=== PATIENT | male | born 1970 | race Caucasian/White ===

== ENCOUNTER → 2017-01-02 | Outpatient (CLI) | payer BC ==
--- NOTE | 2017-01-02 16:18 | CT ---
EXAMINATION TYPE: CT soft tissue neck wo/w con DATE OF EXAM: 01/02/2017 3:51 PM HISTORY: PT states of follow up after tongue CA COMPARISON: Neck CT December 22, 2015. PET/CT June 11, 2016. CT DLP: 1315 mGycm. Automated Exposure Control for Dose Reduction was Utilized. TECHNIQUE: CT scan of the neck is performed without and with IV Contrast, patient injected with 100 mL of Omnipaque 300, axial images are obtained, coronal and sagittal reformatted images are reviewed. FINDINGS: Airway: No gross abnormality seen. Parotid/submandibular glands: No gross abnormality seen. Carotid/Vascular Structures: No significant plaque or stenosis in bilateral carotid bulbs is present Osseous Structures: There is loss of normal cervical curvature. There is mild to moderate spurring in the mid to lower cervical spine present. Other: No suspicious new greater than 1 cm neck adenopathy is identified to suggest neoplastic recurr ence. IMPRESSION: No obvious new mass or adenopathy is seen to suggest neoplastic recurrence with particul ar attention to left neck at area of prior neoplasm.
== END ==
LOC: RADCTMAIN 15:19
PROVIDERS: ATTEND Radiology Diagnostic Radiology
DX: C01 Malignant neoplasm of base of tongue (principal)
CPT/HCPCS: 70492; Q9967

== ENCOUNTER → 2017-09-25 | Outpatient (CLI) | payer BC ==
--- NOTE | 2017-09-25 19:32 | CT ---
EXAMINATION TYPE: CT abdomen w con DATE OF EXAM: 09/25/2017 COMPARISON: 06/11/2016 HISTORY: Epigastric pain and abdominal mass. CT DLP: 1145 mGycm Automated exposure control for dose reduction was used. TECHNIQUE: Helical acquisition of images was performed from the lung bases through the top of iliac crest to include entire abdomen. CONTRAST: Performed with Oral Contrast and with IV Contrast, patient injected with 100 mL of Omnipaque 300. FINDINGS: There are numerous variable sized masses throughout the liver and more concentrated in the left lobe and nadya hepatis region. These measure up to 10 cm in diameter. The spleen appears normal. Bile duct s are not definitely dilated. I see no pancreatic mass. There is no adrenal mass. Kidneys show satisfactory contrast opacification. There is no hydronephrosi s. I see no retroperitoneal adenopathy. There are abdominal para-aortic lymph nodes that measure less than 1 cm. There is no sign of ascites. I see no intestinal wall thickening. I see no bony destructi ve process. IMPRESSION: NUMEROUS LIVER MASSES CONSISTENT WITH METASTATIC DISEASE. THESE APPEAR NEW COMPARED TO CT SCAN OF 05/30. THERE IS REMOVAL OF A GASTROSTOMY TUBE COMPARED TO OLD EXAM.
== END | disposition home or self-care (01) ==
LOC: RADCTMAIN 17:56
PROVIDERS: ATTEND Family Medicine
DX: R16.0 Hepatomegaly, not elsewhere classified (principal)
CPT/HCPCS: 74160; Q9967

== ENCOUNTER 2017-10-09 07:21 | Day surgery (SDC) | payer BC ==
[2017-10-09 08:25] LABS: Platelet Count 440 k/uL (150-450)
[2017-10-09 08:27] LABS: INR 1.3 (<1.2); Prothrombin Time 11.9 sec (9.0-12.0)
[2017-10-09 08:46] VITALS: RESP 20
[2017-10-09] MEDS ORDERED: ALPRAZolam 0.5 MG TAB PO STA (08:47)
--- NOTE | 2017-10-09 09:02 | CT ---
EXAMINATION TYPE: CT chest w con DATE OF EXAM: 10/09/2017 COMPARISON: CT abdomen 09/25/2017 HISTORY: Liver masses, abnormal clinical findings CT DLP: 714 mGycm Automated exposure control for dose reduction was used. CONTRAST: CT scan of the chest is performed with IV Contrast, patient injected with 100 mL of Omnipaque 300. FINDINGS: LUNGS: The lungs are grossly clear, there is no concerning parenchymal mass or nodule identified. T here is no pleural effusion or pneumothorax seen. The tracheobronchial tree is patent. MEDIASTINUM: There are no greater than 1 cm hilar or mediastinal lymph nodes. No pericardial effusi on is seen. AORTA: No additional significant abnormality is seen. OTHER: Extensive replacement of the liver due to multiple and confluent ring-enhancing masses as not ed on CT abdomen.. IMPRESSION: Metastatic disease
[2017-10-09] MEDS ORDERED: HYDROmorphone 1 MG/ML 1 ML SYRINGE IVP STA (09:46)
--- NOTE | 2017-10-09 11:52 | CT ---
EXAMINATION TYPE: CT biopsy liver DATE OF EXAM: 10/09/2017 COMPARISON: NONE HISTORY: Multiple liver masses CT DLP: 1249mGycm PROCEDURE: The risks, applications, benefits and alternatives, were discussed with the patient and questions wer e answered. Informed consent was obtained. The patient was placed supine on the fluoroscopic table, prepped and draped in the usual sterile fashion. A 22-gauge system was utilized with direct passage of the needle into the left lobe liver lesion und er CT guidance. Samples were obtained with fine needle aspiration. Pathology confirmed adequate deepti ple. The patient was stable throughout procedure and remained stable upon discharge from radiology. All e lements of maximal barrier and sterile technique were utilized. IMPRESSION: 1. Successful left lobe liver mass fine needle aspiration under CT guidance.
[2017-10-09 11:54] VITALS: TEMP 98
[2017-10-09 14:28] VITALS: BP 127/82; PULSE 63
== END 2017-10-09 14:29 | disposition home or self-care (01) ==
LOC: RADCTMAIN 07:21 → EDSTATUS 08:00 → RADCTMAIN 14:29
PROVIDERS: ATTEND Internal Medicine Hematology & Oncology
DX: C78.7 Secondary malignant neoplasm of liver and intrahepatic bile duct (principal); C02.9 Malignant neoplasm of tongue, unspecified
CPT/HCPCS: 88305; 88173; 85049; 85610; 88342; 88341; 36415 ×2; 77012; 71260; 10022; J1170; Q9967; 47000

== ENCOUNTER 2017-10-27 07:50 | Day surgery (SDC) | payer BC ==
[2017-10-25 10:44] VITALS: BMI 25.9
--- NOTE | 2017-10-27 07:40 | P.GSHP ---
History of Present Illness H&P Date: 10/27/17 Chief Complaint: Tongue cancer 47 yrs old male with recurrent tongue cancer with liver mets presents for mediport insertion for chemotherapy. Prior radiation therapy left neck. Uninterntional weight loss. No fevers, chills. Past Medical History Past Medical History: Cancer, GERD/Reflux Additional Past Medical History / Comment(s): hx throat cancer- chemo and radiation [id number], recent dx liver cancer, recent bronchitis History of Any Multi-Drug Resistant Organisms: None Reported Past Surgical History: No Surgical Hx Reported Additional Past Surgical History / Comment(s): biopsy on throat, peg feeding tube- feeding tube removed, liver biopsy Past Anesthesia/Blood Transfusion Reactions: No Reported Reaction Additional Past Anesthesia/Blood Transfusion Reaction / Comment(s): . Smoking Status: Former smoker - Past Family History Mother Family Medical History: Congestive Heart Failure (CHF), Myocardial Infarction ( PR) Father Family Medical History: Cancer Medications and Allergies Home Medications Medication Instructions Recorded Confirmed Type Omeprazole 40 mg PO DAILY 10/02/17 10/25/17 History ALPRAZolam [Xanax] 0.25 mg PO BID PRN 10/25/17 10/25/17 History Zofran (Dose Unknown) 1 tab PO TID 10/25/17 10/25/17 History Allergies Allergy/AdvReac Type Severity Reaction Status Date / Time No Known Allergies Allergy Verified 10/25/17 10:36 Surgical - Exam - General well developed, well nourished, no distress - Eyes PERRL - Neck no masses - Abdomen Abdomen: organomegaly Assessment and Plan (1) Primary tongue squamous cell carcinoma Status: Acute Code(s): C02.9 - MALIGNANT NEOPLASM OF TONGUE, UNSPECIFIED SNOMED Code(s): 136339760 Plan: 1. Right IJ mediport insertion under fluoro and sonosite 2. Preop Abx 3. Antibiotics- Ancef 2 gmIVPB 4. B/L SCDs
[~2017-10-27 07:50] MED LIST: HYDROmorphone 0.5 MG/0.5 ML SYRINGE IVP PRN; ONDANSETRON 4 MG/2 ML VIAL IVP PRN; Pre Op ABX Message 1 EACH MISC MISCELLANE ONE
[2017-10-27 08:57] VITALS: TEMP 97.1
[2017-10-27] MEDS: LACTATED RINGERS 1,000 ML IV SCH ×2 (08:57→12:58)
[2017-10-27] MEDS ORDERED: MIDAZOLAM 2 MG/2 ML VIAL IVP ONE (10:43)
[2017-10-27] MEDS ORDERED: PROPOFOL 10 MG/ML 20 ML VIAL IV ONE (12:59)
[2017-10-27] MEDS ORDERED: MIDAZOLAM 2 MG/2 ML VIAL ONE (12:59)
[2017-10-27] MEDS ORDERED: LIDOCAINE 1% INJ 10MG/ML (20 ML MDV) ONE (12:59)
[2017-10-27] MEDS ORDERED: fentaNYL (PF) 50 MCG/ML 2 ML AMP ONE (12:59)
[2017-10-27] MEDS ORDERED: KETAMINE 10 MG/ML 20 ML VIAL ONE (12:59)
[2017-10-27] MEDS ORDERED: SODIUM CHLORIDE 0.9% 50 ML with ceFAZolin 2,000 MG IV ONE ×2 (13:07)
[2017-10-27] MEDS ORDERED: HEPARIN SODIUM,PORCINE 100 UNIT/ML 5 ML VIAL IV ONE ×2 (13:16)
[2017-10-27] MEDS ORDERED: BUPIVACAINE-EPI 0.5%-1:200,000 10 ML VIAL SQ ONE ×2 (13:16)
--- NOTE | 2017-10-27 14:02 | FL ---
EXAMINATION TYPE: FL guided central line placement DATE OF EXAM: 10/27/2017 CLINICAL HISTORY: Port-A-Cath insertion TECHNIQUE: Fluoroscopy. COMPARISON: None. FINDINGS: Fluoroscopic guidance was provided during Port-A-Cath insertion procedure performed by Dr. Baer. A total of 32 seconds of fluoroscopic time was utilized during the procedure and 2 spot i mages are acquired. Intraoperative fluoroscopic images acquired show right internal jugular Mediport catheter with tip in right atrium. IMPRESSION: As Above.
[2017-10-27 14:20] VITALS: RESP 18
--- NOTE | 2017-10-27 14:24 | XR ---
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 Port-A-Cath placement for chemotherapy. TECHNIQUE: Single frontal view of the chest is obtained. FINDINGS: There is new when internal jugular Mediport catheter with tips in SVC. There is no focal a ir space opacity, pleural effusion, or pneumothorax seen. The cardiac silhouette size is within norm al limits. The osseous structures are intact. IMPRESSION: No evidence of sizable pneumothorax. Right internal jugular Mediport catheter with tip i n SVC noted.
[2017-10-27 14:47] VITALS: BP 133/90; PULSE 74
--- NOTE | 2017-10-27 17:08 | P.OP ---
Date of Procedure: 10/27/17 Preoperative Diagnosis: Left base of tongue cancer Liver metastasis Postoperative Diagnosis: Same Procedure(s) Performed: Right IJ mediport placement Implants: Xcela Power Port 8French single lumen Anesthesia: SHERRI Surgeon: Salma Baer Pathology: none sent Condition: stable Disposition: PACU Indications for Procedure: 47 years old male presents with metastatic base of tongue cancer to liver. He presents for Mediport insertion for chemotherapy. Informed consent obtained and risks, benefits and potential complications were explained Description of Procedure: The patient was brought to the operating room and placed in supine position with both arms tucked. A footboard was placed. Chlorhexidine was used to prep the neck followed by application of sterile drapes and an Ioban dressing . A timeout was performed to verify correct patient and correct procedure. Patient was confirmed to receive perioperative IV antibiotics and VTE prophylaxis. An ultrasound was performed of the right neck to identify the carotid artery and internal jugular vein. The internal jugular vein was compressible and patent . Photodocumentation was made. Local anesthetic was infiltrated to create a field block. Seldinger technique was used and the internal jugular vein was accessed under direct ultrasound guidance. There was good backflow of dark venous blood. The guidewire was inserted and fluoroscopic images obtained to confirm the tip in SVC. The needle was removed followed by insertion of a dilator peel-away sheath. Local anesthetic was infiltrated along the inferior aspect of the right clavicle. A 2.5 cm skin incision was made and dissection was carried up to the pectoralis major muscle. A pocket was created for the port. The catheter tubing was connected to the port using the conector after flushing both the port and the catheter with normal saline. The tunneling device was connected to the end of the catheter and after placement of the port in the subcutaneous pocket the tunneling device was passed from the lower incision to the counter incision in the neck. The catheter was measured at the junction of SVC and right atrium. The inner cannula of the peel-away sheath was removed and catheter was gradually inserted. The peel-away sheath was gradually removed. Fluoroscopic image confirmed the tip of the catheter at the junction of SVC and right atrium. There was no kink, fold or torsion of the catheter and the port. The Pickens needle was used to access the port and easy backflow was obtained. This was flushed with 10 mL of normal saline and 10 mL of Hep-Lock was inserted. The skin incision was closed in 3 layers using 3-0 Vicryl interrupted stitches and a running suture of 4-0 Monocryl. Counter incision in the neck was also closed using 3-0 Vicryl followed by 4-0 Monocryl. Dermabond skin glue was applied followed by Telfa and Tegaderm dressing. The sponge, instrument and needle count were correct -2 Patient tolerated the procedure well and was taken to post anesthesia care unit in stable condition Final chest x-ray showed the tip of the catheter in SVC and no pneumothorax. Total fluoroscopic time was 32 seconds
== END 2017-10-27 15:00 | disposition home or self-care (01) ==
LOC: OR 07:50
PROVIDERS: ATTEND Surgery
DX: C01 Malignant neoplasm of base of tongue (principal); C78.7 Secondary malignant neoplasm of liver and intrahepatic bile duct; K21.9 Gastro-esophageal reflux disease without esophagitis; Z92.21 Personal history of antineoplastic chemotherapy; Z92.3 Personal history of irradiation; Z87.891 Personal history of nicotine dependence; Z79.899 Other long term (current) drug therapy; Z79.891 Long term (current) use of opiate analgesic
CPT/HCPCS: 71010; 77001; 36561; C1788; J2250; J1642; J2405; J2001; J3010; J0690; J2704

== ENCOUNTER → 2017-12-29 | Outpatient (CLI) | payer BC ==
--- NOTE | 2017-12-29 12:40 | CT ---
EXAMINATION TYPE: CT ChestAbdPelvis w con DATE OF EXAM: 12/29/2017 COMPARISON: PET/CT exams January 23, 2016 and June 11, 2016. CT chest October 09, 2017. CT abdomen N [id number]. HISTORY: malignant neoplasm of tongue with liver metastatic disease with chemotherapy and radiation t reatment date not specified per patient. CT DLP: 883.4 mGycm. Automated Exposure Control for Dose Reduction was Utilized. CONTRAST: CT scan of the thorax, abdomen and pelvis is performed with oral and with IV Contrast, patient inject ed with 100 mL of Omnipaque 300. FINDINGS: LUNGS: The lungs are grossly clear, there is no concerning parenchymal mass or nodule identified. T here is no pleural effusion or pneumothorax seen. The tracheobronchial tree is patent. MEDIASTINUM: There are no greater than 1 cm hilar or mediastinal lymph nodes. No cardiomegaly or pe ricardial effusion is seen. OTHER: There is new right internal jugular Mediport catheter with tips in SVC. Bilateral gynecomastia is redemonstrated. LIVER/GB: There is redemonstration of innumerable heterogeneous hypodense metastatic lesions. Most le sions are stable or decreasing in size. Largest lesion centrally measures 10.8 cm long axis axial bobby ge 65, felt slightly diminished in size as measured 11.8 cm long axis prior study axial image 20. For reference anterior lesion to this measures 4.2 cm long axis axial image 68 and measured 5.3 cm long axis axial image 25 prior study. There is however at least one enlarging lesion identified, for refer ence segment 6 anterior inferior lesion measures 5.1 cm long axis axial image 82 versus 3.1 cm long a xis prior study axial image 80. PANCREAS: No significant abnormality is seen. SPLEEN: No significant abnormality is seen. ADRENALS: No significant abnormality is seen. KIDNEYS: No significant abnormality is seen. BOWEL: No significant abnormality is seen. GENITAL ORGANS: The oral contrast reaches level of rectum. There is no suspicious small or large chula l dilatation. LYMPH NODES: No greater than 1cm abdominal or pelvic lymph nodes are appreciated. OSSEOUS STRUCTURES: Osseous structures are somewhat demineralized. There is mild multilevel spurring in the thoracic spine. OTHER: No significant additional abnormality is seen. IMPRESSION: Predominately favored response as majority of liver lesions are decreasing in size. At le ast one enlarging lesion however is noted making the overall mixed response. No new metastatic diseas e is identified.
== END | disposition home or self-care (01) ==
LOC: RADPROMAIN 10:16
PROVIDERS: ATTEND Internal Medicine Hematology & Oncology
DX: K76.9 Liver disease, unspecified (principal); C01 Malignant neoplasm of base of tongue
CPT/HCPCS: 71260; 74177; Q9967

== ENCOUNTER → 2018-03-15 | Outpatient (CLI) | payer BC ==
[2018-03-15 15:34] LABS: Blood Urea Nitrogen 19 mg/dL (9-20)
--- NOTE | 2018-03-16 14:11 | CT ---
EXAMINATION TYPE: CT ChestAbdPelvis w con DATE OF EXAM: 03/15/2018 COMPARISON: 12/29/2017 and PET/CT dated 06/11/2016 HISTORY: Patient has no complaints at time of service. Follow up study for known tongue CA with mets to the liver. CT DLP: 747 mGycm. Automated Exposure Control for Dose Reduction was Utilized. CONTRAST: CT scan of the thorax, abdomen and pelvis is performed with IV Contrast, patient injected with 100 mL of Isovue 300. FINDINGS: LUNGS: The lungs are grossly clear, there is no concerning parenchymal mass or nodule identified. T here is no pleural effusion or pneumothorax seen. The tracheobronchial tree is patent. MEDIASTINUM: Right-sided Mediport is noted. There are no greater than 1 cm hilar or mediastinal lymph nodes. No pericardial effusion is seen. OTHER: Bilateral symmetric mild retroareolar gynecomastia is incidentally noted. LIVER/GB: Innumerable hepatic metastatic disease is again appreciated with numerous hypoattenuated he patic masses. The largest currently measures 9.3 x 8.7 cm on series 3 image 59 and previously measure d approximately 10.8 x 10.0 cm on the exam of 12/29/2017. New subcapsular trace ascites is seen anterio r to the liver. There are 2 lesions that appear smaller on the prior exam currently measuring approxi mately 1.4 cm and 1.2 cm on series 3 image 69 and previously measuring 8 mm and 9 mm within the right hepatic lobe. These could be changes secondary to slice selection. There is also decrease in size of a left hepatic lobe lesion on series 3 image 74 as it measures 5.0 x 4.4 cm and previously measured 5.4 x 4.5 cm. Another lesion within the inferior right hepatic lobe also measures smaller as it was p reviously seen measuring 5.1 cm and now measures 4.0 cm on series 3 image 79. No gross evidence of po rtal vein thrombosis. PANCREAS: No significant abnormality is seen. No ductal dilatation. SPLEEN: No significant abnormality is seen. No splenomegaly. ADRENALS: No nodularity or thickening. KIDNEYS: Kidneys enhance symmetrically without focal lesion. No hydronephrosis.. BOWEL: No dilation. Bowel is overall unremarkable. LYMPH NODES: Hyperdense portacaval lymph node measures 1.4 cm in short axis and has decreased from th e prior measured 1.8 cm. Another mildly enlarged 1.3 cm portacaval lymph node is seen on series 8 bobby ge 33. Multiple additional nonenlarged gastrohepatic, peripancreatic, and portacaval lymph nodes are seen. OSSEOUS STRUCTURES: Multilevel degenerative change of the thoracolumbar and lumbosacral spine are not ed. No new suspicious osseous lesions are seen.. OTHER: There is a small amount of free pelvic fluid layering dependently within the pelvis IMPRESSION: 1. Overall response to treatment of the innumerable hepatic metastasis with decrease in size of the l argest lesion and two additional large lesions in comparison to the prior exam. There are 2 small rig ht hepatic lobe lesions that appears slightly larger than the prior exam, however this may be related to slice selection given their small size. Additionally portacaval adenopathy has decreased in size in the interim. 2. No evidence of visceral metastasis or adenopathy within the chest. 3. New trace amount of perihepatic ascites and free fluid within the pelvis. 4. No new suspicious osseous abnormalities.
== END | disposition home or self-care (01) ==
LOC: RADPROMAIN 13:26
PROVIDERS: ATTEND Internal Medicine Hematology & Oncology
DX: C01 Malignant neoplasm of base of tongue (principal); C78.7 Secondary malignant neoplasm of liver and intrahepatic bile duct; R59.0 Localized enlarged lymph nodes
CPT/HCPCS: 82565; 84520; 71260; 74177; J1642; Q9967

== ENCOUNTER → 2018-06-01 | Outpatient (CLI) | payer BC ==
[2018-06-01 14:47] LABS: Blood Urea Nitrogen 19 mg/dL (9-20)
--- NOTE | 2018-06-03 15:51 | CT ---
EXAMINATION TYPE: CT ChestAbdPelvis w con DATE OF EXAM: 06/01/2018 COMPARISON: 03/15/2018 and 12/29/2017 HISTORY: tongue cancer follow up CT DLP: 756.9 mGycm. Automated Exposure Control for Dose Reduction was Utilized. CONTRAST: CT scan of the thorax, abdomen and pelvis is performed with IV Contrast, patient injected with 100 mL of Isovue 300. FINDINGS: LUNGS: The lungs are grossly clear, there is no concerning parenchymal mass or nodule identified. Ple ural-based 2 mm pulmonary nodule within the right lung apex is retrospectively stable and of low susp icion series 5 image 13. However there is a new subsolid on series 5 image 37 nodule in the right low er lobe measuring 4 mm with surrounding groundglass opacity seen on image 36 and 35. There is no pleu ral effusion or pneumothorax seen. The tracheobronchial tree is patent. MEDIASTINUM: No cardiomegaly. No pericardial effusion is seen. There are paraesophageal lymph nodes that are seen in series 3 image 49 measuring up to 9 mm in short axis. LIVER/GB: Again there are innumerable hepatic metastases throughout the entirety of the liver. In com parison to the prior the largest confluence of multiple nodules measure similar to the prior at 10.0 x 8.8 cm (previously 9.3 x 8.7 and on the exam of 12/29/2017 is measured 10.8 x 10.0). Another referenc e lesion near the falciform ligament on series 3 image 74 measures approximately 3.3 x 4.7 cm (when m easured in a similar fashion this previously measured approximately 3.3 x 4.8 cm. However there are n umerous multiple new small hepatic lesions throughout the liver. PANCREAS: No significant abnormality is seen. No ductal dilatation. SPLEEN: No significant abnormality is seen. No splenomegaly. ADRENALS: No significant abnormality is seen. No nodularity. KIDNEYS: Kidneys enhance and excrete symmetrically without hydronephrosis. BOWEL: No significant abnormality is seen. No dilated bowel is present. LYMPH NODES: Multiple necrotic periportal lymph nodes are seen as well as celiac axis lymph nodes suc h as on series 3 image 68 measuring 1.3 cm in short axis. Periaortic adenopathy is also seen with toribio tral necrosis such as on series 3 image 78 measuring 1.1 cm in short axis. Other nonenlarged but prom inent gastrohepatic, peripancreatic and portacaval lymph nodes are present. OSSEOUS STRUCTURES: Multilevel degenerative changes of the thoracic spine and lumbosacral spine are s een with no suspicious new osseous lesion identified. Extensive degenerative facet arthropathy is see n on the right at L5-S1 creating severe neural foraminal narrowing. OTHER: There is a small amount of free fluid seen dependently within the pelvis, similar in volume to the prior. Incidentally noted retroareolar gynecomastia is present IMPRESSION: 1. Progression of disease. The largest lesions appear similar in measurement to the prior, however th ere are multiple new subcentimeter hepatic metastases scattered throughout the liver. 2. New subsolid right lower lobe pulmonary nodule that given its consistency could be inflammatory or infectious in etiology although short-term follow-up is recommended to ensure this does not represen t a new site of metastasis. 3. Similar appearing upper abdominal centrally necrotic metastatic adenopathy. Right paraesophageal l ower mediastinal lymph nodes are also prominent in size. 4. Similar small volume pelvic ascites. 5. No new suspicious osseous lesions however there is severe right neural foraminal narrowing at L5-S 1 secondary to extensive facet arthropathy.
== END ==
LOC: RADPROMAIN 14:01
PROVIDERS: ATTEND Internal Medicine Hematology & Oncology
DX: Z03.89 Encounter for observation for other suspected diseases and conditions ruled out (principal); C77.9 Secondary and unspecified malignant neoplasm of lymph node, unspecified; C78.7 Secondary malignant neoplasm of liver and intrahepatic bile duct; R18.8 Other ascites; C01 Malignant neoplasm of base of tongue
CPT/HCPCS: 82565; 84520; 71260; 74177; J1642; Q9967

== ENCOUNTER 2018-06-21 09:02 | Day surgery (SDC) | payer BC ==
[~2018-06-21 09:02] MED LIST changes: -ONDANSETRON 4 MG/2 ML VIAL IVP PRN; -Pre Op ABX Message 1 EACH MISC MISCELLANE ONE
[2018-06-21 09:37] LABS: Mean Platelet Volume 6.8; Platelet Count 322 k/uL (150-450)
[2018-06-21 09:43] VITALS: RESP 16
[2018-06-21 09:46] LABS: INR 1.2 (<1.2); Prothrombin Time 11.4 sec (9.0-12.0)
[2018-06-21] MEDS ORDERED: HYDROmorphone 1 MG/ML 1 ML SYRINGE IVP PRN (10:18)
--- NOTE | 2018-06-21 12:09 | US ---
EXAMINATION TYPE: US biopsy liver DATE OF EXAM: 06/21/2018 COMPARISON: 06/01/2018 HISTORY: Liver mass The procedure was explained to the patient. The risks, complications, benefits, and alternatives wer e discussed and any questions were answered. Informed consent was obtained. Patient was placed supi ne on the CT table and prepped and draped in the usual sterile fashion. All elements of maximal barrier and sterile technique utilized. Utilizing CT guidance, an 18 gauge core biopsy needle access into the left lobe of the liver lesion was achieved and two18 gauge core samples were obtained. The patient was stable throughout the proce dure and remained stable upon discharge. IMPRESSION: 1. Successful 18 gauge core biopsy of the liver.
[2018-06-21 14:22] VITALS: BP 109/67; PULSE 64; TEMP 98.7
== END 2018-06-21 14:49 | disposition home or self-care (01) ==
LOC: RADPROMAIN 09:02
PROVIDERS: ATTEND Internal Medicine Hematology & Oncology
DX: D49.0 Neoplasm of unspecified behavior of digestive system (principal)
CPT/HCPCS: 85049; 85610; 88342; 88307; 88341; 96374; 47000; 76942; J1170; J1642

== ENCOUNTER 2018-09-05 11:07 | Inpatient (IN) | payer BC ==
--- NOTE | 2018-09-05 11:41 | ED ---
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 Patient states she has metastatic disease to the liver and has quite a bit of ascites. On Monday he had 6.6 L drained. Patient states yesterday he was told his calcium was elevated and he came in for some fluids and that infusion of a drug to help calcium. Patient comes in today because he is experiencing more right-sided abdominal pain since he had the paracentesis. Patient also states he's been more short of breath and he thought his shortness of breath would improve but it has not. Patient denies any chest pain or palpitations. Patient denies any fever chills per patient denies any nausea vomiting diarrhea. Patient states she's had no change in urination no burning or hematuria. Patient states the pain in his abdomen is much worse when he coughs or moves if he lies still it is not too bad. Patient states the pain is typically about a 4 out of 10 right now it's better because he took pain medication prior to arrival. - Related Data Home Medications Medication Instructions Recorded Confirmed Omeprazole 40 mg PO DAILY 10/02/17 09/05/18 ALPRAZolam [Xanax] 0.25 mg PO Q8H PRN 10/25/17 09/05/18 fentaNYL [Duragesic 50MCG/HR] 50 mcg TRANSDERM Q72H 06/13/18 09/05/18 oxyCODONE-APAP 10-325MG [Percocet 1 tab PO Q4H PRN 06/13/18 09/05/18 10-325 mg] Docusate [Colace] 300 mg PO BID 09/05/18 09/05/18 Prochlorperazine [Compazine] 10 mg PO Q8H PRN 09/05/18 09/05/18 Vitamin B Complex 1 cap PO DAILY 09/05/18 09/05/18 Allergies Allergy/AdvReac Type Severity Reaction Status Date / Time No Known Allergies Allergy Verified 09/05/18 11:40 Review of Systems ROS Statement: Those systems with pertinent positive or pertinent negative responses have been documented in the HPI. ROS Other: All systems not noted in ROS Statement are negative. Past Medical History Past Medical History: Cancer, GERD/Reflux Additional Past Medical History / Comment(s): hx throat cancer- chemo and radiation [id number], recent dx liver cancer, recent bronchitis History of Any Multi-Drug Resistant Organisms: None Reported Past Surgical History: No Surgical Hx Reported Additional Past Surgical History / Comment(s): biopsy on throat, peg feeding tube- feeding tube removed, liver biopsyx3, paracentesis x1, power port Past Anesthesia/Blood Transfusion Reactions: No Reported Reaction Additional Past Anesthesia/Blood Transfusion Reaction / Comment(s): . Past Psychological History: Anxiety Smoking Status: Former smoker Past Alcohol Use History: None Reported Past Drug Use History: None Reported - Past Family History Mother Family Medical History: Congestive Heart Failure (CHF), Myocardial Infarction ( [place]) Father Family Medical History: Cancer General Exam - General Exam Comments Initial Comments: GENERAL: Patient is well-developed and well-nourished. Patient is nontoxic and well- hydrated and is in mild distress. ENT: Neck is soft and supple. No significant lymphadenopathy is noted. Oropharynx is clear. Moist mucous membranes. Neck has full range of motion without eliciting any pain. EYES: The sclera were anicteric and conjunctiva were pink and moist. Extraocular movements were intact and pupils were equal round and reactive to light. Eyelids were unremarkable. PULMONARY: Unlabored respirations. Good breath sounds bilaterally. No audible rales rhonchi or wheezing was noted. CARDIOVASCULAR: There is a regular rate and rhythm without any murmurs gallops or rubs. ABDOMEN: Patient's liver is enlarged he is tender right upper quadrant always to the epigastric area. Bowel sounds are normal. Patient also has a little tenderness over the paracentesis site. SKIN: Skin is clear with no lesions or rashes and otherwise unremarkable. NEUROLOGIC: Patient is alert and oriented x3. Cranial nerves II through XII are grossly intact. Motor and sensory are also intact. Normal speech, volume and content. Symmetrical smile. MUSCULOSKELETAL: Normal extremities with adequate strength and full range of motion. LYMPHATICS: No significant lymphadenopathy is noted PSYCHIATRIC: Normal psychiatric evaluation. Limitations: no limitations Course Vital Signs 09/05/18 09/05/18 09/05/18 11:15 12:15 13:30 Temperature 98.1 F Pulse Rate 101 H 94 99 Respiratory 18 18 18 Rate Blood Pressure 133/89 134/78 102/66 O2 Sat by Pulse 95 98 96 Oximetry 09/05/18 15:38 Temperature 100 F H Pulse Rate 98 Respiratory 16 Rate Blood Pressure 139/94 O2 Sat by Pulse 94 L Oximetry Medical Decision Making - Medical Decision Making EKG shows normal sinus rhythm at 97 bpm MD interval is 136 QRS is 88 QT interval 338 QTC is 429. Patient's EKG shows no ST segment elevation or depression or T wave abnormalities are noted. Patient spiked a fever at 345 I gave the patient help this time I ordered a lactic acid and I started the patient on antibiotics. CT of the chest showed no PE. CT of the abdomen showed advancing ascites as well as metastatic disease. Patient required multiple doses of pain medication while in the emergency department. I spoke with the patient about being admitted in treating him for his fever and possible peritonitis he was in agreement with that but he did state to me that he did not want any aggressive care. I spoke with Dr. Cameron she agreed to admit the patient. I spoke with the oncologist and she agreed with Usman. - Lab Data Result diagrams: 09/05/18 12:38 09/05/18 12:38 Lab Results 09/05/18 09/05/18 09/05/18 Range/Units 12:38 12:38 12:38 WBC 17.5 H (3.8-10.6) k/uL RBC 4.45 (4.30-5.90) m/uL Hgb 12.1 L (13.0-17.5) gm/dL Hct 40.4 (39.0-53.0) % MCV 90.7 (80.0-100.0) fL MCH 27.3 (25.0-35.0) pg MCHC 30.1 L (31.0-37.0) g/dL RDW 15.5 (11.5-15.5) % Plt Count 487 H (150-450) k/uL Neutrophils % (Manual) 84 % Band Neutrophils % 4 % Lymphocytes % (Manual) 4 % Monocytes % (Manual) 7 % Eosinophils % (Manual) 1 % Neutrophils # (Manual) 15.40 H (1.3-7.7) k/uL Lymphocytes # (Manual) 0.70 L (1.0-4.8) k/uL Monocytes # (Manual) 1.23 H (0-1.0) k/uL Eosinophils # (Manual) 0.18 (0-0.7) k/uL Nucleated RBCs 0 (0-0) /100 WBC Manual Slide Review Performed RBC Morphology Normal PT (9.0-12.0) sec INR (<1.2) APTT (22.0-30.0) sec D-Dimer 2.09 H (<0.60) mg/L FEU Sodium 131 L (137-145) mmol/L Potassium 5.2 H (3.5-5.1) mmol/L Chloride 95 L (98-107) mmol/L Carbon Dioxide 29 (22-30) mmol/L Anion Gap 7 mmol/L BUN 27 H (9-20) mg/dL Creatinine 0.84 (0.66-1.25) mg/dL Est GFR (CKD-EPI)AfAm >90 (>60 ml/min/1.73 sqM) Est GFR (CKD-EPI)NonAf >90 (>60 ml/min/1.73 sqM) Glucose 116 H (74-99) mg/dL Plasma Lactic Acid Max (0.7-2.0) mmol/L Calcium 11.1 H (8.4-10.2) mg/dL Total Bilirubin 1.1 (0.2-1.3) mg/dL AST 212 H (17-59) U/L ALT 94 H (21-72) U/L Alkaline Phosphatase 1439 H (38-126) U/L Troponin I (0.000-0.034) ng/mL Total Protein 6.9 (6.3-8.2) g/dL Albumin 3.4 L (3.5-5.0) g/dL Amylase 50 (30-110) U/L Lipase 139 (23-300) U/L Urine Color Urine Appearance (Clear) Urine pH (5.0-8.0) Ur Specific [place] (1.001-1.035) Urine Protein (Negative) Urine Glucose (UA) (Negative) Urine Ketones (Negative) Urine Blood (Negative) Urine Nitrite (Negative) Urine Bilirubin (Negative) Urine Urobilinogen (<2.0) mg/dL Ur Leukocyte Esterase (Negative) Urine WBC (0-5) /hpf 09/05/18 09/05/18 09/05/18 Range/Units 12:38 12:38 12:38 WBC (3.8-10.6) k/uL RBC (4.30-5.90) m/uL Hgb (13.0-17.5) gm/dL Hct (39.0-53.0) % MCV (80.0-100.0) fL MCH (25.0-35.0) pg MCHC (31.0-37.0) g/dL RDW (11.5-15.5) % Plt Count (150-450) k/uL Neutrophils % (Manual) % Band Neutrophils % % Lymphocytes % (Manual) % Monocytes % (Manual) % Eosinophils % (Manual) % Neutrophils # (Manual) (1.3-7.7) k/uL Lymphocytes # (Manual) (1.0-4.8) k/uL Monocytes # (Manual) (0-1.0) k/uL Eosinophils # (Manual) (0-0.7) k/uL Nucleated RBCs (0-0) /100 WBC Manual Slide Review RBC Morphology PT 16.2 H (9.0-12.0) sec INR 1.8 H (<1.2) APTT 48.9 H (22.0-30.0) sec D-Dimer (<0.60) mg/L FEU Sodium (137-145) mmol/L Potassium (3.5-5.1) mmol/L Chloride (98-107) mmol/L Carbon Dioxide (22-30) mmol/L Anion Gap mmol/L BUN (9-20) mg/dL Creatinine (0.66-1.25) mg/dL Est GFR (CKD-EPI)AfAm (>60 ml/min/1.73 sqM) Est GFR (CKD-EPI)NonAf (>60 ml/min/1.73 sqM) Glucose (74-99) mg/dL Plasma Lactic Acid Max 1.9 (0.7-2.0) mmol/L Calcium (8.4-10.2) mg/dL Total Bilirubin (0.2-1.3) mg/dL AST (17-59) U/L ALT (21-72) U/L Alkaline Phosphatase (38-126) U/L Troponin I <0.012 (0.000-0.034) ng/mL Total Protein (6.3-8.2) g/dL Albumin (3.5-5.0) g/dL Amylase (30-110) U/L Lipase (23-300) U/L Urine Color Urine Appearance (Clear) Urine pH (5.0-8.0) Ur Specific [place] (1.001-1.035) Urine Protein (Negative) Urine Glucose (UA) (Negative) Urine Ketones (Negative) Urine Blood (Negative) Urine Nitrite (Negative) Urine Bilirubin (Negative) Urine Urobilinogen (<2.0) mg/dL Ur Leukocyte Esterase (Negative) Urine WBC (0-5) /hpf 09/05/18 Range/Units 15:08 WBC (3.8-10.6) k/uL RBC (4.30-5.90) m/uL Hgb (13.0-17.5) gm/dL Hct (39.0-53.0) % MCV (80.0-100.0) fL MCH (25.0-35.0) pg MCHC (31.0-37.0) g/dL RDW (11.5-15.5) % Plt Count (150-450) k/uL Neutrophils % (Manual) % Band Neutrophils % % Lymphocytes % (Manual) % Monocytes % (Manual) % Eosinophils % (Manual) % Neutrophils # (Manual) (1.3-7.7) k/uL Lymphocytes # (Manual) (1.0-4.8) k/uL Monocytes # (Manual) (0-1.0) k/uL Eosinophils # (Manual) (0-0.7) k/uL Nucleated RBCs (0-0) /100 WBC Manual Slide Review RBC Morphology PT (9.0-12.0) sec INR (<1.2) APTT (22.0-30.0) sec D-Dimer (<0.60) mg/L FEU Sodium (137-145) mmol/L Potassium (3.5-5.1) mmol/L Chloride (98-107) mmol/L Carbon Dioxide (22-30) mmol/L Anion Gap mmol/L BUN (9-20) mg/dL Creatinine (0.66-1.25) mg/dL Est GFR (CKD-EPI)AfAm (>60 ml/min/1.73 sqM) Est GFR (CKD-EPI)NonAf (>60 ml/min/1.73 sqM) Glucose (74-99) mg/dL Plasma Lactic Acid Max (0.7-2.0) mmol/L Calcium (8.4-10.2) mg/dL Total Bilirubin (0.2-1.3) mg/dL AST (17-59) U/L ALT (21-72) U/L Alkaline Phosphatase (38-126) U/L Troponin I (0.000-0.034) ng/mL Total Protein (6.3-8.2) g/dL Albumin (3.5-5.0) g/dL Amylase (30-110) U/L Lipase (23-300) U/L Urine Color Light Brown Urine Appearance Turbid (Clear) Urine pH 5.5 (5.0-8.0) Ur Specific [place] 1.027 (1.001-1.035) Urine Protein 1+ H (Negative) Urine Glucose (UA) Negative (Negative) Urine Ketones Negative (Negative) Urine Blood Negative (Negative) Urine Nitrite Negative (Negative) Urine Bilirubin 1+ H (Negative) Urine Urobilinogen 3.0 (<2.0) mg/dL Ur Leukocyte Esterase Negative (Negative) Urine WBC 40 H (0-5) /hpf Critical Care Time Critical Care Time: Yes Total Critical Care Time: 35 Disposition Clinical Impression: Peritonitis Disposition: ADMITTED IP TO THIS HOSP Referrals: Yusuf Cameron MD [Primary Care Provider] - 1-2 days Time of Disposition: 17:08
--- NOTE | 2018-09-05 13:00 | XR ---
EXAMINATION TYPE: XR KUB DATE OF EXAM: 09/05/2018 COMPARISON: NONE HISTORY: Pain TECHNIQUE: Single supine KUB image of the abdomen is obtained FINDINGS: Small bowel demonstrates no evidence for dilatation or air fluid levels. Retained contrast within th e transverse colon. Gas and fecal material is seen in non-distended colon. No convincing evidence for pneumoperitoneum. No unusual calcifications. The lung bases are clear. The osseous structures are intact. IMPRESSION: 1. Overall nonobstructive bowel gas pattern.
[2018-09-05 13:05] LABS: HCT 40.4 % (39.0-53.0); HGB 12.1 gm/dL (13.0-17.5); MCH 27.3 pg (25.0-35.0); MCHC 30.1 g/dL (31.0-37.0); MCV 90.7 fL (80.0-100.0); Mean Platelet Volume 7.2; Platelet Count 487 k/uL (150-450); RBC 4.45 m/uL (4.30-5.90); RDW 15.5 % (11.5-15.5); WBC 17.5 k/uL (3.8-10.6)
[2018-09-05] MEDS: HYDROmorphone 1 MG/ML 1 ML SYRINGE IVP STA ×2 (13:06→15:34)
[2018-09-05 13:19] LABS: ALT 94 U/L (21-72); AST 212 U/L (17-59); Albumin 3.4 g/dL (3.5-5.0); Alkaline Phosphatase 1439 U/L (38-126); Amylase 50 U/L (30-110); Anion Gap 7 mmol/L; Blood Urea Nitrogen 27 mg/dL (9-20); Calcium 11.1 mg/dL (8.4-10.2); Carbon Dioxide 29 mmol/L (22-30); Chloride 95 mmol/L (98-107); Glucose 116 mg/dL (74-99); Lipase 139 U/L (23-300); Potassium 5.2 mmol/L (3.5-5.1); Sodium 131 mmol/L (137-145); Total Bilirubin 1.1 mg/dL (0.2-1.3); Total Protein 6.9 g/dL (6.3-8.2)
[2018-09-05 14:00] LABS: Band Neutrophils % 4 %; Eosinophils # (M) 0.18 k/uL (0-0.7); Monocytes # (M) 1.23 k/uL (0-1.0); Neutrophils % (M) 84 %; Nucleated Red Blood Cells 0 /100 WBC (0-0); Total Cells Counted 100
[2018-09-05 14:23] LABS: INR 1.8 (<1.2); Partial Thromboplastin Time 48.9 sec (22.0-30.0); Prothrombin Time 16.2 sec (9.0-12.0)
[2018-09-05 15:31] LABS: Appearance,Urine Turbid (Clear); Bilirubin,Urine 1+ (Negative); Blood,Urine Negative (Negative); Color,Urine Light Brown; Glucose,Urine (UA) Negative (Negative); Ketones,Urine Negative (Negative); Leukocyte Esterase,Urine Negative (Negative); Nitrite,Urine Negative (Negative); PH, Urine 5.5 (5.0-8.0); Protein,Urine 1+ (Negative); Specific Gravity,Urine 1.027 (1.001-1.035); WBC,Urine 40 /hpf (0-5)
--- NOTE | 2018-09-05 15:51 | CT ---
EXAMINATION TYPE: CT chest angio for PE DATE OF EXAM: 09/05/2018 COMPARISON: June 01, 2018 HISTORY: SOB/AB PAIN/STAGE [address] DLP: 1189.4 mGycm CONTRAST: CT chest with contrast and 3D reconstruction with MIP imaging is performed with IV Contrast, patient injected with 100 mL of Isovue 370. Contrast-enhanced CT of the chest was performed through the course of the pulmonary arteries with shahab g and mediastinal window settings submitted. 3D reconstruction with MIP imaging was also performed. PULMONARY ARTERIES: The pulmonary arteries and their major tributaries are patent. I do not see luc dence for sizable filling defect to suggest pulmonary embolic process. LUNGS: Small left pleural effusions are noted bilaterally. MEDIASTINUM: Thoracic aorta is of normal caliber,however, evaluation is limited given timing of the contrast bolus. If there is concern for t horacic aortic pathology consider YUSUF. Correlate clinically . The heart is not enlarged. No evidenc e for mediastinal mass. No mediastinal lymph nodes greater than 1cm. HILAR STRUCTURES: No evidence for mass. No hilar lymph nodes greater than 1 cm. UPPER ABDOMEN: Innumerable hepatic lesions persist and have progressed significantly. There is eviden ce for abdominal ascites. Hepatomegaly. IMPRESSION: 1. No evidence for Pulmonary embolism at this time. 2. Significant interval progression of hepatic lesions. 3 small bilateral pleural effusions. Basilar linear atelectasis. Previously described nodule poorly delineated on today's examination.
--- NOTE | 2018-09-05 15:54 | CT ---
EXAMINATION TYPE: CT abdomen pelvis w con DATE OF EXAM: 09/05/2018 COMPARISON: Stage IV head neck metastatic cancer with new abdominal pain. HISTORY: CT chest abdomen and pelvis June 01, 2018 CT DLP: 1189.4 mGycm, Automated Exposure Control for Dose Reduction was Utilized. CONTRAST: CT scan of the abdomen and pelvis is performed with oral and with IV Contrast, patient injected with 100 mL of Isovue 370. FINDINGS: LUNG BASES: Please refer to same date CTA chest exam for complete details on the lung bases. LIVER/GB: Hepatomegaly within numerous heterogeneous hypodense metastatic lesions is redemonstrated. They are increased in size and number with less visualized normal parenchyma on current exam versus p rior. There is pseudocirrhosis appearance with lobulated peripheral contour. PANCREAS: No significant abnormality is seen. SPLEEN: More prominent splenomegaly now measuring 16.7 cm long axis coronal image 84. ADRENALS: Stable slight nodular thickening left adrenal gland axial image 36 is nonspecific. KIDNEYS: No significant abnormality is seen. BOWEL: No significant abnormality is seen. PROSTATE/SEMINAL VESICLES: No gross abnormality seen. LYMPH NODES: No greater than 1cm abdominal or pelvic lymph nodes are appreciated. OSSEOUS STRUCTURES: Moderate disc space narrowing L4-L5 level is redemonstrated. OTHER: Further progression of ascites with new moderate to severe ascites throughout the abdomen and pelvis. IMPRESSION: New moderate to severe abdominal and pelvic ascites. Worsening hepatic metastatic disease . Worsening splenomegaly.
[2018-09-05] MEDS ORDERED: ACETAMINOPHEN TAB 325 MG TAB PO STA (15:59)
[2018-09-05] MEDS ORDERED: cefTRIAXone 2,000 MG in SODIUM CHLORIDE 0.9% 100 ML IVPB STA (16:33)
[2018-09-05] MEDS ORDERED: SODIUM CHLORIDE 0.9% 1,000 ML IV ONE (17:08)
[2018-09-05] MEDS ORDERED: VANCOMYCIN IV PER PHARMACY 1 EACH MISC MISCELLANE PRN (17:11)
[2018-09-05] MEDS ORDERED: VANCOMYCIN 1,500 MG in SODIUM CHLORIDE 0.9% 250 ML IVPB STA (17:21)
[2018-09-05] MEDS: HYDROmorphone 1 MG/ML 1 ML SYRINGE IVP PRN ×2 (18:29→23:44)
[2018-09-06] MEDS: VANCOMYCIN 1,250 MG in SODIUM CHLORIDE 0.9% 250 ML IVPB SCH ×3 (02:04→17:40)
[2018-09-06] MEDS: HYDROmorphone 1 MG/ML 1 ML SYRINGE IVP PRN ×9 (04:12→23:17)
[2018-09-06] MEDS ORDERED: ALPRAZolam 0.25 MG TAB PO PRN (08:52)
[2018-09-06] MEDS ORDERED: DOCUSATE 100 MG CAP PO SCH (09:00)
[2018-09-06] MEDS: cefTRIAXone 2,000 MG in SODIUM CHLORIDE 0.9% 100 ML IVPB SCH (09:18)
--- NOTE | 2018-09-06 10:56 | P.HPIM ---
History of Present Illness H&P Date: 09/06/18 Chief Complaint: Abdominal pain 47-year-old male who presented to the emergency room with a chief complaint of abdominal pain. The patient has a history of squamous cell carcinoma with metastasis to the liver. The patient states he has had 2 different types of chemotherapy, neither of which were successful. He reports he has been following up at [facility] for a possible clinical trial, but was recently re-evaluated and was told his disease had progressed too far to be a candiate for the trial. He states his oncology team has recommended hospice. He had a paracentesis performed downtown with removal of 6.6 L. He reports being seen on Monday by his oncologist because of his elevated calcium levels. He began having abdominal pain which has worsened in severity over the last 24 hours. He is prescribed Percocet outpatient and states it is not helping the pain at all. He presented to the emergency room for further evaluation. Patient does report some associated shortness of breath. Denies chest pain or pressure. Denies nausea or vomiting. Denies diarrhea. Patient does have chronic constipation and takes stool softeners daily. Denies fever or chills. Denies lightheadedness or dizziness. KUB x-ray was completed revealing overall nonobstructive bowel gas pattern. CT angios the chest was performed due to elevated d-dimer. CT was negative for pulmonary embolism. It did reveal significant interval progression of hepatic lesions. Small bilateral pleural effusions. Basilar linear atelectasis. CT of the abdomen and pelvis was performed revealing new moderate to severe abdominal and pelvic ascites. Worsening hepatic metastatic disease. Worsening splenomegaly. Laboratory data on admission reveals white count 17.5. Hemoglobin 12.1. Platelet count 487. D -dimer 2.09. Sodium 131. Potassium 5.2. BUN 27. Creatinine 0.84. Glucose 116. Lactic acid 1.9. AST 212. ALT 94. Alkaline phosphatase 1439. Troponin negative 1. Amylase 50. Lipase 139. Urinalysis reveals turbid light brown urine, 1+ proteinuria, 1+ bilirubin, WBC 40. Negative for leukocyte esterase or nitrites. Review of Systems Those systems with pertinent positive or pertinent negative responses have been documented in the HPI Past Medical History Past Medical History: Cancer, GERD/Reflux Additional Past Medical History / Comment(s): hx throat cancer- chemo and radiation [id number], recent dx liver cancer, bronchitis. "abd hernia", upper topfront dental bridge", constipation History of Any Multi-Drug Resistant Organisms: None Reported Past Surgical History: No Surgical Hx Reported Additional Past Surgical History / Comment(s): biopsy on tounge, peg feeding tube- feeding tube removed, 10-09-17 liver mass bx at [facility] , #2 liver bx done at [facility] and 3rd liver bx at [facility] (per johannae it was for clinical trials) paracentesis x1, power port Past Anesthesia/Blood Transfusion Reactions: No Reported Reaction Additional Past Anesthesia/Blood Transfusion Reaction / Comment(s): . Smoking Status: Former smoker - Past Family History Mother Family Medical History: Congestive Heart Failure (CHF), Hyperlipidemia, Hypertension Additional Family Medical History / Comment(s): Father Family Medical History: Cancer Medications and Allergies Home Medications Medication Instructions Recorded Confirmed Type Omeprazole 40 mg PO DAILY 10/02/17 09/05/18 History ALPRAZolam [Xanax] 0.25 mg PO Q8H PRN 10/25/17 09/05/18 History fentaNYL [Duragesic 50MCG/HR] 50 mcg TRANSDERM Q72H 06/13/18 09/05/18 History oxyCODONE-APAP 10-325MG [Percocet 1 tab PO Q4H PRN 06/13/18 09/05/18 History 10-325 mg] Docusate [Colace] 300 mg PO BID 09/05/18 09/05/18 History Prochlorperazine [Compazine] 10 mg PO Q8H PRN 09/05/18 09/05/18 History Vitamin B Complex 1 cap PO DAILY 09/05/18 09/05/18 History Allergies Allergy/AdvReac Type Severity Reaction Status Date / Time No Known Allergies Allergy Verified 09/05/18 11:40 Physical Exam Vitals: Vital Signs Temp Pulse Pulse Resp BP BP Pulse Ox 09/06/18 05:00 98.5 F 88 18 121/82 95 09/05/18 20:40 98.1 F 93 16 122/76 94 L 09/05/18 18:08 98.7 F 89 18 134/87 94 L 09/05/18 17:43 99 F 09/05/18 17:26 96 16 135/91 93 L 09/05/18 15:38 100 F H 98 16 139/94 94 L 09/05/18 13:30 99 18 102/66 96 09/05/18 12:15 94 18 134/78 98 09/05/18 11:15 98.1 F 101 H 18 133/89 95 Intake and Output 09/05/18 09/06/18 09/06/18 22:59 06:59 14:59 Intake Total 250 800 Balance 250 800 Intake: Intake, IV Titration 250 800 Amount Sodium Chloride 0.9% 1, 800 000 ml @ 100 mls/hr IV . Q10H [facility] Rx#:[id number] Vancomycin 1,250 mg In 250 Sodium Chloride 0.9% 250 ml @ 125 mls/hr IVPB Q8H [facility] Rx#:[id number] Other: Voiding Method Toilet Toilet GENERAL: This is a 47-year-old thin male who appears to be in pain at the time of examination. HEENT: Head is atraumatic, normocephalic. Pupils are equal, round, and reactive to light. Conjunctivae are clear. Mucus membranes of the mouth are moist. Neck is supple. RESPIRATORY: Clear to auscultation. No wheezes, rales, or rhonchi. No use of accessory muscles. Patient maintaining oxygen saturation greater than 92%. CARDIOVASCULAR: Regular rate and rhythm. S1 and S2 noted. No systolic or diastolic murmur auscultated. No JVD noted. No S3 or S4 noted. GASTROINTESTINAL: Distended. Ascites noted. Significant pain and tenderness noted upon light palpation. INTEGUMENTARY: No cyanosis. Mild jaundice noted. No rashes noted. No cellulitis noted. EXTREMITIES: 2+ peripheral pulses. No evidence of peripheral edema. No calf tenderness noted. NEUROLOGIC: Cranial nerves II-XII intact. PSYCHIATRIC: Awake, alert, and oriented X 3. Appropriate affect. Intact judgement and insight. Results CBC & Chem 7: 09/05/18 12:38 09/05/18 12:38 Labs: Abnormal Lab Results - Last 24 Hours (Table) 09/05/18 09/05/18 09/05/18 Range/Units 12:38 12:38 12:38 WBC 17.5 H (3.8-10.6) k/uL Hgb 12.1 L (13.0-17.5) gm/dL MCHC 30.1 L (31.0-37.0) g/dL Plt Count 487 H (150-450) k/uL Neutrophils # (Manual) 15.40 H (1.3-7.7) k/uL Lymphocytes # (Manual) 0.70 L (1.0-4.8) k/uL Monocytes # (Manual) 1.23 H (0-1.0) k/uL PT (9.0-12.0) sec INR (<1.2) APTT (22.0-30.0) sec D-Dimer 2.09 H (<0.60) mg/L FEU Sodium 131 L (137-145) mmol/L Potassium 5.2 H (3.5-5.1) mmol/L Chloride 95 L (98-107) mmol/L BUN 27 H (9-20) mg/dL Glucose 116 H (74-99) mg/dL Calcium 11.1 H (8.4-10.2) mg/dL AST 212 H (17-59) U/L ALT 94 H (21-72) U/L Alkaline Phosphatase 1439 H (38-126) U/L Albumin 3.4 L (3.5-5.0) g/dL Urine Protein (Negative) Urine Bilirubin (Negative) Urine WBC (0-5) /hpf 09/05/18 09/05/18 Range/Units 12:38 15:08 WBC (3.8-10.6) k/uL Hgb (13.0-17.5) gm/dL MCHC (31.0-37.0) g/dL Plt Count (150-450) k/uL Neutrophils # (Manual) (1.3-7.7) k/uL Lymphocytes # (Manual) (1.0-4.8) k/uL Monocytes # (Manual) (0-1.0) k/uL PT 16.2 H (9.0-12.0) sec INR 1.8 H (<1.2) APTT 48.9 H (22.0-30.0) sec D-Dimer (<0.60) mg/L FEU Sodium (137-145) mmol/L Potassium (3.5-5.1) mmol/L Chloride (98-107) mmol/L BUN (9-20) mg/dL Glucose (74-99) mg/dL Calcium (8.4-10.2) mg/dL AST (17-59) U/L ALT (21-72) U/L Alkaline Phosphatase (38-126) U/L Albumin (3.5-5.0) g/dL Urine Protein 1+ H (Negative) Urine Bilirubin 1+ H (Negative) Urine WBC 40 H (0-5) /hpf Microbiology - Last 24 Hours (Table) 09/05/18 15:08 Urine Culture - Preliminary Urine,Voided Thrombosis Risk Factor Assmnt - Choose All That Apply Any of the Below Risk Factors Present?: Yes Each Factor Represents 1 point: Age 41-60 years Each Risk Factor Represents 2 Points: Malignancy Other congenital or acquired thrombophilia - If yes, enter type in comment: No Thrombosis Risk Factor Assessment Total Risk Factor Score: 3 Thrombosis Risk Factor Assessment Level: Moderate Risk Assessment and Plan Plan: ASSESSMENT: Acute peritonitis Leukocytosis, WBC 17.5 on admission secondary to peritonitis 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 Await further recommendations and input Consult oncology for evaluation Increase patients Dilaudid to 2mg Q2 hours as pain is uncontrolled currently Patient states hospice is a possibility in the near future, but would like to treat this acute condition first and then go from there Home meds as appropriate Monitor labs GI prophylaxis: Protonix 40 mg PO Daily DVT prophylaxis: Patient with elevated INR due to coagulopathy Monitor vital signs and address as appropriate Discharge planning: Patient to return home when stable Further recommendations pending patient's course Nurse practitioner note has been reviewed by physician. Signing provider agrees with the documented findings, assessment, and plan of care.
[2018-09-06] MEDS: CYANOCOBALAMIN-FA-PYRIDOXINE 1 EACH TAB PO SCH (10:58)
--- NOTE | 2018-09-06 13:01 | P.CONS ---
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 His states he has been off chemotherapy for the past 3-4 months and that he has had significant decline in his physical activity over the past week. 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 He has been seen at the [facility] in [place] and was being evaluated for possible clinical trial but was determined that he was not a candidate for this and apparently had recommended hospice. He did have a piercing T-System done there and had removal of 6.6 L of fluid. Patient states that this was done because he was feeling full in his abdomen with decreased appetite and it was starting to get painful. He had follow-up with Dr. Espinoza on Monday and subsequently developed severe abdominal pain on the right side. He states his abdomen is slightly larger since the paracentesis but not back to the level was prior to. He states he has fevers usually every morning which he has been told these are tumor fevers. He complains of nausea and vomiting for the past couple of days but goes with the pain. Yesterday he had emesis after drinking a protein shake and this has been ongoing for a couple weeks on and off. He denies having any diarrhea. He's been having very small bowel movements the last one was this morning. He denies any blood or blackness to the stools. He has mild shortness of breath due to abdominal distention, cough with sputum production. He denies having any chest pain. He denies any pain with urination but states his urine has been much darker in color. He continues to have decreased appetite but will try to eat for lunch today. He avoids bread products as these seem to get stuck in his throat. Patient came into [facility] emergency center for evaluation. Temperature max is 100, white count 17.5, creatinine 0.84. Total bilirubin 1.1, AST 20 and 12, ALT 94, alkaline phosphatase 14,039. Urinalysis was turbid with 1+ bilirubin, nitrate and leukoesterase negative. CAT scan of the abdomen and pelvis revealed new moderate to severe abdominal and pelvic ascites. Worsening hepatic metastatic disease. Worsening splenomegaly. Patient was started on Rocephin and vancomycin and admitted to the oncology unit. He is scheduled for paracentesis this afternoon with plan to obtain cultures. Blood and urine cultures in progress. Review of Systems All systems: negative Constitutional: Reports anorexia, Reports chronic pain, Reports fatigue, Reports fever, Reports poor appetite, Reports weakness, Reports weight loss, Denies chills Eyes: denies blurred vision, denies pain Ears, nose, mouth and throat: Reports dysphagia, Denies headache, Denies sore throat, Denies vertigo Cardiovascular: Reports dyspnea on exertion, Reports shortness of breath, Denies chest pain, Denies edema, Denies leg edema, Denies lightheadedness, Denies syncope Respiratory: Reports cough, Reports cough with sputum, Reports dyspnea, Denies excessive sputum, Denies hemoptysis, Denies home oxygen, Denies wheezing Gastrointestinal: Reports abdominal pain, Reports loss of appetite, Reports nausea, Reports vomiting, Denies diarrhea Genitourinary: Denies dysuria, Denies urinary frequency, Denies urinary retention Musculoskeletal: Reports muscle weakness, Denies frequent falls, Denies gait dysfunction, Denies myalgias Integumentary: Denies pruritus, Denies rash, Denies wounds Neurological: Denies change in mentation, Denies confusion, Denies gait dysfunction, Denies numbness, Denies seizures, Denies weakness Psychiatric: Denies anxiety, Denies depression Endocrine: Denies fatigue, Denies weight change Past Medical History Past Medical History: Cancer, GERD/Reflux Additional Past Medical History / Comment(s): hx throat cancer- chemo and radiation [id number], recent dx liver cancer, bronchitis. "abd hernia", upper topfront dental bridge", constipation History of Any Multi-Drug Resistant Organisms: None Reported Past Surgical History: No Surgical Hx Reported Additional Past Surgical History / Comment(s): biopsy on tounge, peg feeding tube- feeding tube removed, 10-09-17 liver mass bx at [facility] , #2 liver bx done at [facility] and 3rd liver bx at [facility] (per pily it was for clinical trials) paracentesis x1, power port Past Anesthesia/Blood Transfusion Reactions: No Reported Reaction Additional Past Anesthesia/Blood Transfusion Reaction / Comm: . Smoking Status: Former smoker Additional Past Alcohol Use History / Comment(s): Patient was a smoker one pack per day and quit in 2014. He also has history of heavy alcohol use and also quit in 2015. Patient lives at home with his and there is one dog at home. No children. - Past Family History Mother Family Medical History: Congestive Heart Failure (CHF), Hyperlipidemia, Hypertension Additional Family Medical History / Comment(s): Father Family Medical History: Cancer Medications and Allergies Home Medications Medication Instructions Recorded Confirmed Type Omeprazole 40 mg PO DAILY 10/02/17 09/05/18 History ALPRAZolam [Xanax] 0.25 mg PO Q8H PRN 10/25/17 09/05/18 History fentaNYL [Duragesic 50MCG/HR] 1 patch TRANSDERM Q72H 06/13/18 09/06/18 History oxyCODONE-APAP 10-325MG [Percocet 1 tab PO Q4H PRN 06/13/18 09/05/18 History 10-325 mg] Prochlorperazine [Compazine] 10 mg PO Q8H PRN 09/05/18 09/05/18 History Vitamin B Complex 1 cap PO DAILY 09/05/18 09/05/18 History Lactulose [Cephulac] 20 gm PO BID 09/06/18 09/06/18 History Allergies Allergy/AdvReac Type Severity Reaction Status Date / Time No Known Allergies Allergy Verified 09/05/18 11:40 Physical Exam Vitals: Vital Signs Temp Pulse Pulse Resp BP BP Pulse Ox 09/06/18 12:29 99.9 F H 70 15 138/80 94 L 09/06/18 08:00 16 09/06/18 05:00 98.5 F 88 18 121/82 95 09/05/18 20:40 98.1 F 93 16 122/76 94 L 09/05/18 18:08 98.7 F 89 18 134/87 94 L 09/05/18 17:43 99 F 09/05/18 17:26 96 16 135/91 93 L 09/05/18 15:38 100 F H 98 16 139/94 94 L 09/05/18 13:30 99 18 102/66 96 Intake and Output 09/05/18 09/06/18 09/06/18 22:59 06:59 14:59 Intake Total 250 800 Balance 250 800 Intake: Intake, IV Titration 250 800 Amount Sodium Chloride 0.9% 1, 800 000 ml @ 100 mls/hr IV . Q10H [facility] Rx#:[id number] Vancomycin 1,250 mg In 250 Sodium Chloride 0.9% 250 ml @ 125 mls/hr IVPB Q8H [facility] Rx#:[id number] Other: Voiding Method Toilet Toilet Gen: This is a thin 47-year-old male. He is in bed and appears to be moderately comfortable. Patient's is at the bedside. HEENT: Head is atraumatic, normocephalic. Pupils equal, round. Sclerae is anicteric. Oral mucous members are moist. Dentition is in good order. No thrush or lesions noted. NECK: Supple. No JVD. No lymphadenopathy. No thyromegaly. LUNGS: Clear to auscultation. No wheezes or rhonchi. No intercostal retractions. HEART: Regular rate and rhythm. No murmur. + right sided port. ABDOMEN: Distended and firm, ventral hernia noted. Bowel sounds are present. No masses. Significant tenderness to the right side of the abdomen. EXTREMITIES: No pedal edema. No calf tenderness. Dorsalis pedis +2 bilaterally. NEUROLOGICAL: Patient is awake, alert and oriented x3. Cranial nerves 2 through 12 are grossly intact. Results Results: Laboratory Results WBC 17.5 k/uL (3.8-10.6) H 09/05/18 12:38 RBC 4.45 m/uL (4.30-5.90) 09/05/18 12:38 Hgb 12.1 gm/dL (13.0-17.5) L 09/05/18 12:38 Hct 40.4 % (39.0-53.0) 09/05/18 12:38 MCV 90.7 fL (80.0-100.0) 09/05/18 12:38 MCH 27.3 pg (25.0-35.0) 09/05/18 12:38 MCHC 30.1 g/dL (31.0-37.0) L 09/05/18 12:38 RDW 15.5 % (11.5-15.5) 09/05/18 12:38 Plt Count 487 k/uL (150-450) H 09/05/18 12:38 Neutrophils % (Manual) 84 % 09/05/18 12:38 Band Neutrophils % 4 % 09/05/18 12:38 Lymphocytes % (Manual) 4 % 09/05/18 12:38 Monocytes % (Manual) 7 % 09/05/18 12:38 Eosinophils % (Manual) 1 % 09/05/18 12:38 Neutrophils # (Manual) 15.40 k/uL (1.3-7.7) H 09/05/18 12:38 Lymphocytes # (Manual) 0.70 k/uL (1.0-4.8) L 09/05/18 12:38 Monocytes # (Manual) 1.23 k/uL (0-1.0) H 09/05/18 12:38 Eosinophils # (Manual) 0.18 k/uL (0-0.7) 09/05/18 12:38 Nucleated RBCs 0 /100 WBC (0-0) 09/05/18 12:38 Manual Slide Review Performed 09/05/18 12:38 RBC Morphology Normal 09/05/18 12:38 PT 16.2 sec (9.0-12.0) H 09/05/18 12:38 INR 1.8 (<1.2) H 09/05/18 12:38 APTT 48.9 sec (22.0-30.0) H 09/05/18 12:38 D-Dimer 2.09 mg/L FEU (<0.60) H 09/05/18 12:38 Sodium 131 mmol/L (137-145) L 09/05/18 12:38 Potassium 5.2 mmol/L (3.5-5.1) H 09/05/18 12:38 Chloride 95 mmol/L (98-107) L 09/05/18 12:38 Carbon Dioxide 29 mmol/L (22-30) 09/05/18 12:38 Anion Gap 7 mmol/L 09/05/18 12:38 BUN 27 mg/dL (9-20) H 09/05/18 12:38 Creatinine 0.84 mg/dL (0.66-1.25) 09/05/18 12:38 Est GFR (CKD-EPI)AfAm >90 (>60 ml/min/1.73 sqM) 09/05/18 12:38 Est GFR (CKD-EPI)NonAf >90 (>60 ml/min/1.73 sqM) 09/05/18 12:38 Glucose 116 mg/dL (74-99) H 09/05/18 12:38 Plasma Lactic Acid Max 1.9 mmol/L (0.7-2.0) 09/05/18 12:38 Calcium 11.1 mg/dL (8.4-10.2) H 09/05/18 12:38 Total Bilirubin 1.1 mg/dL (0.2-1.3) 09/05/18 12:38 AST 212 U/L (17-59) H 09/05/18 12:38 ALT 94 U/L (21-72) H 09/05/18 12:38 Alkaline Phosphatase 1439 U/L (38-126) H 09/05/18 12:38 Troponin I <0.012 ng/mL (0.000-0.034) 09/05/18 12:38 Total Protein 6.9 g/dL (6.3-8.2) 09/05/18 12:38 Albumin 3.4 g/dL (3.5-5.0) L 09/05/18 12:38 Amylase 50 U/L (30-110) 09/05/18 12:38 Lipase 139 U/L (23-300) 09/05/18 12:38 Urine Color Light Brown 09/05/18 15:08 Urine Appearance Turbid (Clear) 09/05/18 15:08 Urine pH 5.5 (5.0-8.0) 09/05/18 15:08 Ur Specific Badger 1.027 (1.001-1.035) 09/05/18 15:08 Urine Protein 1+ (Negative) H 09/05/18 15:08 Urine Glucose (UA) Negative (Negative) 09/05/18 15:08 Urine Ketones Negative (Negative) 09/05/18 15:08 Urine Blood Negative (Negative) 09/05/18 15:08 Urine Nitrite Negative (Negative) 09/05/18 15:08 Urine Bilirubin 1+ (Negative) H 09/05/18 15:08 Urine Urobilinogen 3.0 mg/dL (<2.0) 09/05/18 15:08 Ur Leukocyte Esterase Negative (Negative) 11/07/18 15:08 Urine WBC 40 /hpf (0-5) H 09/05/18 15:08 CBC & Chem 7: 09/05/18 12:38 09/05/18 12:38 Labs: Abnormal Lab Results - Last 24 Hours (Table) 09/05/18 09/05/18 09/05/18 Range/Units 12:38 12:38 12:38 WBC 17.5 H (3.8-10.6) k/uL Hgb 12.1 L (13.0-17.5) gm/dL MCHC 30.1 L (31.0-37.0) g/dL Plt Count 487 H (150-450) k/uL Neutrophils # (Manual) 15.40 H (1.3-7.7) k/uL Lymphocytes # (Manual) 0.70 L (1.0-4.8) k/uL Monocytes # (Manual) 1.23 H (0-1.0) k/uL PT (9.0-12.0) sec INR (<1.2) APTT (22.0-30.0) sec D-Dimer 2.09 H (<0.60) mg/L FEU Sodium 131 L (137-145) mmol/L Potassium 5.2 H (3.5-5.1) mmol/L Chloride 95 L (98-107) mmol/L BUN 27 H (9-20) mg/dL Glucose 116 H (74-99) mg/dL Calcium 11.1 H (8.4-10.2) mg/dL AST 212 H (17-59) U/L ALT 94 H (21-72) U/L Alkaline Phosphatase 1439 H (38-126) U/L Albumin 3.4 L (3.5-5.0) g/dL Urine Protein (Negative) Urine Bilirubin (Negative) Urine WBC (0-5) /hpf 09/05/18 09/05/18 Range/Units 12:38 15:08 WBC (3.8-10.6) k/uL Hgb (13.0-17.5) gm/dL MCHC (31.0-37.0) g/dL Plt Count (150-450) k/uL Neutrophils # (Manual) (1.3-7.7) k/uL Lymphocytes # (Manual) (1.0-4.8) k/uL Monocytes # (Manual) (0-1.0) k/uL PT 16.2 H (9.0-12.0) sec INR 1.8 H (<1.2) APTT 48.9 H (22.0-30.0) sec D-Dimer (<0.60) mg/L FEU Sodium (137-145) mmol/L Potassium (3.5-5.1) mmol/L Chloride (98-107) mmol/L BUN (9-20) mg/dL Glucose (74-99) mg/dL Calcium (8.4-10.2) mg/dL AST (17-59) U/L ALT (21-72) U/L Alkaline Phosphatase (38-126) U/L Albumin (3.5-5.0) g/dL Urine Protein 1+ H (Negative) Urine Bilirubin 1+ H (Negative) Urine WBC 40 H (0-5) /hpf Microbiology - Last 24 Hours (Table) 09/05/18 15:08 Urine Culture - Preliminary Urine,Voided Assessment and Plan Plan: This is a 47-year-old male who presents with signs of sepsis secondary to acute peritonitis and ascites with underlying history of tongue cancer with metastatic disease to the liver. Patient underwent paracentesis with removal of 6.6 L of fluid on Monday and subsequently developed significant pain to the abdomen with distention. Patient scheduled for repeat paracentesis this afternoon with cultures to be obtained. Patient is currently on Rocephin 2 g every 24 hours and vancomycin, pharmacy to dose. Culture is in progress. Continue supportive care. Further medications as patient progresses. The above dictated assessment and findings were discussed with Dr. Dave. The impression and plan of care have been directed as dictated. Manuela Hendrickson nurse practitioner acting as scribe for Dr. Dave.
[2018-09-06] MEDS: LACTULOSE 20 GM/30 ML CUP PO SCH ×2 (14:47→21:33)
--- NOTE | 2018-09-06 15:02 | US ---
Therapeutic and diagnostic paracentesis. DATE OF EXAM: 09/06/2018 CLINICAL HISTORY: Ascites The procedure was discussed with the patient. The risks, complications, benefits, and alternatives we re discussed and any questions were answered. Informed consent was obtained. The patient was placed s upine on the ultrasound table and prepped and draped in the usual sterile fashion. All elements of maximal barrier technique were utilized. Under ultrasound guidance, access into the right lower quadrant was obtained, via the paracentesis catheter system and direct ultrasound guidanc e. Approximately 4.1 liters of straw-colored fluid was removed. The patient was stable throughout the pr ocedure and remained stable upon discharge from Department of Radiology. Sample sent to pathology for analysis. IMPRESSION: Successful paracentesis under ultrasound guidance.
--- NOTE | 2018-09-06 22:25 | P.CON ---
Consult Note - . 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 His states he has been off chemotherapy for the past 3-4 months and that he has had significant decline in his physical activity over the past week. 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 He has been seen at the [facility] in [place] and was being evaluated for possible clinical trial but was determined that he was not a candidate for this and apparently had recommended hospice. He did have a piercing T-System done there and had removal of 6.6 L of fluid. Patient states that this was done because he was feeling full in his abdomen with decreased appetite and it was starting to get painful. He had follow-up with Dr. Espinoza on Monday and subsequently developed severe abdominal pain on the right side. He states his abdomen is slightly larger since the paracentesis but not back to the level was prior to. He states he has fevers usually every morning which he has been told these are tumor fevers. He complains of nausea and vomiting for the past couple of days but goes with the pain. Yesterday he had emesis after drinking a protein shake and this has been ongoing for a couple weeks on and off. He denies having any diarrhea. He's been having very small bowel movements the last one was this morning. He denies any blood or blackness to the stools. He has mild shortness of breath due to abdominal distention, cough with sputum production. He denies having any chest pain. He denies any pain with urination but states his urine has been much darker in color. He continues to have decreased appetite but will try to eat for lunch today. He avoids bread products as these seem to get stuck in his throat. Patient came into [facility] emergency center for evaluation. Temperature max is 100, white count 17.5, creatinine 0.84. Total bilirubin 1.1, AST 20 and 12, ALT 94, alkaline phosphatase 14,039. Urinalysis was turbid with 1+ bilirubin, nitrate and leukoesterase negative. CAT scan of the abdomen and pelvis revealed new moderate to severe abdominal and pelvic ascites. Worsening hepatic metastatic disease. Worsening splenomegaly. Patient was started on Rocephin and vancomycin and admitted to the oncology unit. He is scheduled for paracentesis this afternoon with plan to obtain cultures. Blood and urine cultures in progress. Please see the consult note as dictated by nurse practitioner Mrs. Manuela Hendrickson. 39-year-old male with history of squamous cell carcinoma from his tongue that now appears to be involving his liver and possibly with peritoneal seeding. The patient has had a significant change of the status with the significant worsening of his ascites. It outpatient aspiration of 6.6 L and 4 L were withdrawn today. The patient is considerably more comfortable status post a second paracentesis. The concerns to underlying peritonitis antibiotic therapy was initiated with Rocephin and vancomycin pending further culture results. The patient is more comfortable this evening. His is present in their questions are answered. Information about how ascites occurs and liver disease which they seemed easily understand and appreciate. Consequently continue with supportive care, if bacterial peritonitis is found he does have IV access via port and antibiotic therapy can then be utilized in the home setting. The patient relates that she would be able to assist in outpatient infusions. The patient is having a significant change of his functional status and that he has been just recently taking off work despite his advanced disease. Heger with evaluation, assessment and plan as dictated by nurse practitioner Mrs. Manuela Hendrickson.
[2018-09-07] MEDS: HYDROmorphone 1 MG/ML 1 ML SYRINGE IVP PRN ×10 (02:31→23:26)
[2018-09-07] MEDS: VANCOMYCIN 1,250 MG in SODIUM CHLORIDE 0.9% 250 ML IVPB SCH ×2 (02:32→10:23)
[2018-09-07] MEDS: CYANOCOBALAMIN-FA-PYRIDOXINE 1 EACH TAB PO SCH (08:22)
[2018-09-07] MEDS: cefTRIAXone 2,000 MG in SODIUM CHLORIDE 0.9% 100 ML IVPB SCH (08:22)
[2018-09-07] MEDS: LACTULOSE 20 GM/30 ML CUP PO SCH ×2 (08:23→20:50)
[2018-09-07] MEDS: PANTOPRAZOLE 40 MG TABLET PO SCH (08:23)
[2018-09-07] MEDS ORDERED: VANCOMYCIN TROUGH DUE 1 EACH MISC MISCELLANE ONE (09:00)
[2018-09-07 09:14] LABS: Anion Gap 7 mmol/L; Blood Urea Nitrogen 20 mg/dL (9-20); Calcium 9.1 mg/dL (8.4-10.2); Carbon Dioxide 26 mmol/L (22-30); Chloride 99 mmol/L (98-107); Glucose 95 mg/dL (74-99); Potassium 4.9 mmol/L (3.5-5.1); Sodium 132 mmol/L (137-145)
--- NOTE | 2018-09-07 09:29 | P.PN ---
Subjective Progress Note Date: 09/07/18 09/06/2018 47-year-old male who presented to the emergency room with a chief complaint of abdominal pain. The patient has a history of squamous cell carcinoma with metastasis to the liver. The patient states he has had 2 different types of chemotherapy, neither of which were successful. He reports he has been following up at [facility] for a possible clinical trial, but was recently re-evaluated and was told his disease had progressed too far to be a candiate for the trial. He states his oncology team has recommended hospice. He had a paracentesis performed downtown with removal of 6.6 L. He reports being seen on Monday by his oncologist because of his elevated calcium levels. He began having abdominal pain which has worsened in severity over the last 24 hours. He is prescribed Percocet outpatient and states it is not helping the pain at all. He presented to the emergency room for further evaluation. Patient does report some associated shortness of breath. Denies chest pain or pressure. Denies nausea or vomiting. Denies diarrhea. Patient does have chronic constipation and takes stool softeners daily. Denies fever or chills. Denies lightheadedness or dizziness. KUB x-ray was completed revealing overall nonobstructive bowel gas pattern. CT angios the chest was performed due to elevated d-dimer. CT was negative for pulmonary embolism. It did reveal significant interval progression of hepatic lesions. Small bilateral pleural effusions. Basilar linear atelectasis. CT of the abdomen and pelvis was performed revealing new moderate to severe abdominal and pelvic ascites. Worsening hepatic metastatic disease. Worsening splenomegaly. Laboratory data on admission reveals white count 17.5. Hemoglobin 12.1. Platelet count 487. D -dimer 2.09. Sodium 131. Potassium 5.2. BUN 27. Creatinine 0.84. Glucose 116. Lactic acid 1.9. AST 212. ALT 94. Alkaline phosphatase 1439. Troponin negative 1. Amylase 50. Lipase 139. Urinalysis reveals turbid light brown urine, 1+ proteinuria, 1+ bilirubin, WBC 40. Negative for leukocyte esterase or nitrites. 09/07/2018 Patient seen and examined at the bedside. Spouse present. Patient underwent paracentesis yesterday with removal of 4.1 L. Gram stain reveals no organisms visualized. Culture and sensitivity is currently pending. Urine culture is negative. Blood cultures are negative at the 24 hour aleta. Patient states his pain has improved significantly. Patient states his appetite has improved a little bit. Hospice consult was placed yesterday per case management. Objective - Vital Signs Vital signs: Vital Signs Temp 98.5 F 09/07/18 05:06 Pulse 86 09/07/18 05:06 Resp 16 09/07/18 05:06 BP 110/62 09/07/18 05:06 Pulse Ox 94 L 09/07/18 05:06 Intake & Output 09/06/18 09/07/18 09/07/18 18:59 06:59 18:59 Intake Total 1590 Output Total 125 Balance 1465 Weight 79.379 kg Intake: Intake, IV Titration 750 Amount Sodium Chloride 0.9% 1, 500 000 ml @ 100 mls/hr IV . Q10H [facility] Rx#:[id number] Vancomycin 1,250 mg In 250 Sodium Chloride 0.9% 250 ml @ 125 mls/hr IVPB Q8H [facility] Rx#:[id number] Oral 840 Output: Urine 125 Other: Voiding Method Toilet Toilet # Voids 2 2 - Exam GENERAL: This is a 47-year-old thin male who does not appear to be in any acute distress at the time of examination. HEENT: Head is atraumatic, normocephalic. Pupils are equal, round, and reactive to light. Conjunctivae are clear. Mucus membranes of the mouth are moist. Neck is supple. RESPIRATORY: Clear to auscultation. No wheezes, rales, or rhonchi. No use of accessory muscles. Patient maintaining oxygen saturation greater than 92%. CARDIOVASCULAR: Regular rate and rhythm. S1 and S2 noted. No systolic or diastolic murmur auscultated. No JVD noted. No S3 or S4 noted. GASTROINTESTINAL: Ascites noted, improved from yesterday.. Very mild tenderness noted upon palpation. INTEGUMENTARY: No cyanosis. No rashes noted. No cellulitis noted. EXTREMITIES: 2+ peripheral pulses. No evidence of peripheral edema. No calf tenderness noted. NEUROLOGIC: Cranial nerves II-XII intact. PSYCHIATRIC: Awake, alert, and oriented X 3. Appropriate affect. Intact judgement and insight. - Labs CBC & Chem 7: 09/05/18 12:38 09/07/18 08:20 Labs: Abnormal Lab Results - Last 24 Hours (Table) 09/07/18 Range/Units 08:20 Sodium 132 L (137-145) mmol/L Microbiology - Last 24 Hours (Table) 09/05/18 15:08 Urine Culture - Final Urine,Voided 09/06/18 13:10 Gram Stain - Preliminary Ascites Fluid Body Fluid Culture - Preliminary 09/05/18 17:15 Blood Culture - Preliminary Blood No Growth after 24 hours 09/06/18 13:10 Anaerobic Culture - Preliminary Paracentesis Fluid Assessment and Plan Plan: ASSESSMENT: Possible acute peritonitis, status post paracentesis with removal of 4.1 L, cultures pending Leukocytosis, WBC 17.5 on admission secondary to possible peritonitis Squamous cell carcinoma of the tongue with metastasis to liver Ascites, secondary to metastatic disease, status post paracentesis 09/03/2018 with removal of 6.6 L Elevated liver enzymes, secondary to metastatic disease Coagulopathy, INR 1.8, secondary to metastatic disease History of PEG tube with subsequent removal History of nicotine dependence, in remission, patient quit smoking 2014 Former heavy ETOH use Hypercalcemia PLAN: Infectious disease and oncology on consult. Appreciate recommendations and input Continue antibiotics. Await results of cultures Continue Dilaudid 2mg Q2 hours. Patient will be discharged home on oral Dilaudid Consult dietary Begin supplements TID Hospice consulted placed per case management Home meds as appropriate Monitor labs GI prophylaxis: Protonix 40 mg PO Daily DVT prophylaxis: Patient with elevated INR due to coagulopathy. Patient encouraged to ambulate today in the hallways Monitor vital signs and address as appropriate Discharge planning: Patient to return home when stable Further recommendations pending patient's course Nurse practitioner note has been reviewed by physician. Signing provider agrees with the documented findings, assessment, and plan of care.
[2018-09-07 11:13] VITALS: BMI 22.4
[2018-09-07] MEDS: VANCOMYCIN 1,500 MG in SODIUM CHLORIDE 0.9% 250 ML IVPB SCH (23:26)
--- NOTE | 2018-09-08 00:29 | P.CONS ---
History of Present Illness - Reason for Consult Consult date: 09/07/18 Metastatic Head and Neck Cancer - History of Present Illness The patient is a 47 yr old WM, who presented with sore throat and persistent left neck adenopathy for about 3 months,did not resolve with antibiotics. On 12/22/2015,CT scan of the neck revealed 1.3x1.7cm lesion at left tongue base, multiple left cervical nodes,largest 2.4cm. He was referred to Dr Traylor and on 01/07/2016,he underwent triple endoscopy,was found to have a suspicious lesion at left base of his tongue, biopsy of it and FNA of left cervical node were positive for poorly differentiated squamous cell carcinoma. On 01/23/2016,PET scan revealed suspicious uptake in left base of the tongue and multiple suspicious left cervical nodes. He started concurrent cisplatin every 3 weeks and radiation on 02/05/2016. He was admitted in because of significant dehydration,dysphagia and required PEG tube placement. He completed XRT on 04/11/2016 Repeat PET scan on 06/11/[address] of neck done on was negative for recurrence. He did well until end of summer when he started to have RUQ discomfort,which persisted,he had a CT scan of abdomen on 09/25/2017 which revealed multiple liver lesions suspicious for metastatic disease. On 10/09/2017,CT scan of chest was negative for lung mets. 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 He started carboplatin/5FU/erbitux on 11/10/[address] scan of chest/abdomen/pelvis on 12/29/2017 revealed mixed response, improvement in almost all liver lesions,however,one lesion had significantly progressed (confirmed and reviewed with radiologist) He started second line opdivo on 01/19/2018 On 03/15/2018,repeat CT scan revealed some improvement in his disease. However, on 06/03/2018,repeat CT scan revealed evidence of disease progression. On 06/25/2018,another liver biopsy was done in order to send for [facility] but there was not enough tissue. The pt was referred to Phase I Clinical trials at [facility]. However , after evaluation it appears that an appropriate trial was not available, due to rapid progression of disease and change in PS. He has developed abdominal distension, and had 6 L drained last week. He came in with recurrent abdominal pain, more prominent on the rt side, with progression, and distension. He also noted constipation, and decrease in appetite. CT scans show progression of disease in the liver and recurrent ascites. He had repeat paracentesis of about 4 L on 09/06/18, with improvement in symptoms Consult was placed for further evaluation and recommendations. Review of Systems Constitutional: Reports chronic pain, Reports poor appetite, Reports weakness, Reports weight loss Eyes: denies blurred vision, denies pain Ears: deny: decreased hearing, ear discharge, earache, tinnitus Ears, nose, mouth and throat: Denies headache, Denies sore throat Cardiovascular: Reports dyspnea on exertion Respiratory: Reports dyspnea Gastrointestinal: Reports abdominal pain, Reports bloating, Reports constipation Genitourinary: Reports as per HPI Musculoskeletal: Reports muscle weakness Integumentary: Denies pruritus, Denies rash Neurological: Reports weakness, Denies numbness Psychiatric: Reports anxiety Endocrine: Reports fatigue, Reports weight change Hematologic/Lymphatic: Reports as per HPI Past Medical History Past Medical History: Cancer, GERD/Reflux Additional Past Medical History / Comment(s): hx throat cancer- chemo and radiation [id number], recent dx liver cancer, bronchitis. "abd hernia", upper topfront dental bridge", constipation History of Any Multi-Drug Resistant Organisms: None Reported Past Surgical History: No Surgical Hx Reported Additional Past Surgical History / Comment(s): biopsy on tounge, peg feeding tube- feeding tube removed, 10-09-17 liver mass bx at [facility] , #2 liver bx done at [facility] and 3rd liver bx at [facility] (per pily it was for clinical trials) paracentesis x1, power port Past Anesthesia/Blood Transfusion Reactions: No Reported Reaction Additional Past Anesthesia/Blood Transfusion Reaction / Comm: . Smoking Status: Former smoker Additional Past Alcohol Use History / Comment(s): Patient was a smoker one pack per day and quit in 2014. He also has history of heavy alcohol use and also quit in 2015. Patient lives at home with his and there is one dog at home. No children. - Past Family History Mother Family Medical History: Congestive Heart Failure (CHF), Hyperlipidemia, Hypertension Additional Family Medical History / Comment(s): Father Family Medical History: Cancer Medications and Allergies Home Medications Medication Instructions Recorded Confirmed Type Omeprazole 40 mg PO DAILY 10/02/17 09/05/18 History ALPRAZolam [Xanax] 0.25 mg PO Q8H PRN 10/25/17 09/05/18 History fentaNYL [Duragesic 50MCG/HR] 1 patch TRANSDERM Q72H 06/13/18 09/06/18 History oxyCODONE-APAP 10-325MG [Percocet 1 tab PO Q4H PRN 06/13/18 09/05/18 History 10-325 mg] Prochlorperazine [Compazine] 10 mg PO Q8H PRN 09/05/18 09/05/18 History Vitamin B Complex 1 cap PO DAILY 09/05/18 09/05/18 History Lactulose [Cephulac] 20 gm PO BID 09/06/18 09/06/18 History Allergies Allergy/AdvReac Type Severity Reaction Status Date / Time No Known Allergies Allergy Verified 09/05/18 11:40 Physical Exam Vitals: Vital Signs Temp Pulse Pulse Resp BP Pulse Ox 09/07/18 12:09 98 F 80 16 122/73 98 09/07/18 05:06 98.5 F 86 16 110/62 94 L 09/07/18 00:00 81 70 16 09/06/18 21:00 98.0 F 81 16 104/71 95 Intake and Output 09/07/18 09/07/18 09/07/18 06:59 14:59 22:59 Intake Total 670 160 Output Total 125 Balance 545 160 Intake: IV 160 .9 160 Intake, IV Titration 250 Amount Vancomycin 1,250 mg In 250 Sodium Chloride 0.9% 250 ml @ 125 mls/hr IVPB Q8H [facility] Rx#:[id number] Oral 420 Output: Urine 125 Other: Voiding Method Toilet Toilet # Voids 2 Weight 79.379 kg 79.379 kg - Constitutional General appearance: no acute distress - EENT Eyes: EOMI, PERRLA ENT: hearing grossly normal, normal oropharynx - Neck Neck: no lymphadenopathy Thyroid: bilateral: normal size - Respiratory Respiratory: bilateral: diminished - Cardiovascular Rhythm: regular Heart sounds: normal: S1, S2 - Gastrointestinal General gastrointestinal: distended, hepatomegaly (4 -5 fingers BCM, nodular surface) - Integumentary Integumentary: normal - Neurologic Neurologic: CNII-XII intact - Musculoskeletal Musculoskeletal: generalized weakness - Psychiatric Psychiatric: A&O x's 3, appropriate affect Results CBC & Chem 7: 09/05/18 12:38 09/07/18 08:20 Labs: Abnormal Lab Results - Last 24 Hours (Table) 09/07/18 Range/Units 08:20 Sodium 132 L (137-145) mmol/L Microbiology - Last 24 Hours (Table) 09/06/18 13:10 Gram Stain - Preliminary Ascites Fluid Body Fluid Culture - Preliminary 09/05/18 15:08 Urine Culture - Final Urine,Voided 09/05/18 17:15 Blood Culture - Preliminary Blood No Growth after 24 hours 09/06/18 13:10 Anaerobic Culture - Preliminary Paracentesis Fluid Abdominal x-ray: report reviewed CT scan - abdomen: report reviewed CT scan - chest: report reviewed CT scan - pelvis: report reviewed Assessment and Plan (1) Ascites Narrative/Plan: The pt has had symptomatic relief with paracantesis. The rapid recurrence of ascites indicates either progression of disease in the liver with decompensation , or peritoneal involvement with malignancy. In either case , this indicates progression of malignancy. Implications were discussed with the pt and family. Current Visit: Yes Status: Acute Code(s): R18.8 - OTHER ASCITES SNOMED Code(s): 531576419 (2) Primary tongue squamous cell carcinoma Narrative/Plan: The pt has widely metastatic disease with progression with liver decompensation. He has progressed on approved therapies. Appropriate Phase I trials are not available, per [facility]. The implications were discussed in detail with him and his significant other. In this situation, it would be reasonable to consider a comfort care approach. Apparently the same was recommended by [facility]. Overall prognosis is likely limited due to progressive metastatic disease , especially in the liver. Thus palliative care and hospice were discussed. At this time, they would prefer palliative care, so as to continue palliative paracentesis as needed. Consult for the same will beplaced Case d/w admitting service in detail. In view of above, I discussed change of code status to DNR. They wanted to discuss with Dr Cameron prior to confirming the same Current Visit: No Status: Acute Code(s): C02.9 - MALIGNANT NEOPLASM OF TONGUE, UNSPECIFIED SNOMED Code(s): 722243477
[2018-09-08] MEDS: HYDROmorphone 1 MG/ML 1 ML SYRINGE IVP PRN ×3 (04:18→08:45)
[2018-09-08] MEDS: PANTOPRAZOLE 40 MG TABLET PO SCH (08:45)
[2018-09-08] MEDS: CYANOCOBALAMIN-FA-PYRIDOXINE 1 EACH TAB PO SCH (08:45)
[2018-09-08] MEDS: cefTRIAXone 2,000 MG in SODIUM CHLORIDE 0.9% 100 ML IVPB SCH (08:46)
[2018-09-08] MEDS: LACTULOSE 20 GM/30 ML CUP PO SCH ×2 (08:46→19:31)
[2018-09-08] MEDS: HYDROmorphone 2 MG TAB PO PRN ×7 (10:47→23:22)
--- NOTE | 2018-09-08 11:13 | PN ---
PROGRESS NOTE Patient is doing well at this time, having less pain. He does have some returning of his ascites. He is having no problems with shortness of breath. No chest pain. We have no results, no positive organisms yet back from blood culture; urine culture is normal from his ascites. At this period of time, patient feels good on the medication are both Dilaudid with the patch has controlled his pain. REVIEW OF SYSTEMS: Eyes are fine. ENT has dry mouth. Neck no problems swallowing. Chest no cough, no shortness of breath. Heart no palpitations, chest pain. GI, he does have a very distended abdomen with moderate amount of pain that is controlled with pain medication as return here quite quickly. Lower extremities, he has a fair amount of the cachexia with a lot of muscle strength but negative DVT. Good palpable pulses. MEDICATIONS: At this time taken Xanax 0.25 every 8. He is still on ceftriaxone 2 g q.24 hours, also on vancomycin. His other medications include folic acid 1 mg a day. He is on Dilaudid 2 mg IV push. He is on lactulose 20 mg. He is on Protonix 40 mg a day. He is on Compazine. LAB WORK: Only thing done today was his Chem 17, he still has a potassium about 132. The creatinine, liver, and other functions are fine. Yesterday, upon admission, his liver function showed a AST of 212, an ALT of 94, and alkaline phosphatase of 1439. His urine is absolutely normal. ASSESSMENT: 1. Cancer of the neck, squamous cell with metastatic disease to the abdomen with severe ascites, questionable bacterial peritonitis. Elevated liver function tests with metastatic disease. INR of 1.8. PEG tube. 2. History of nicotine dependence and previous heavy alcohol use. Infectious Disease, Oncology, Dr. Dave appreciate recommendations for antibiotics, so he is on Dilaudid 2 mg q.2 IV push. Will try the oral and see how it works. GI prophylaxis. DVT prophylaxis. We have decided after a long conversation that will go with palliative care in case he needs to have the abdomen tapped again. At this point, and as he said, "Doc, I know I have severe disease, but I do not feel like I am dying. " I explained to him the importance of probably going with DNR and he understands that. At the same time, palliative care at home with proper IV antibiotics and oral medications. Pain control medications will be changed at this time. Please refer to my orders. .. MMODL / IJN: [id number] /
[2018-09-08] MEDS: VANCOMYCIN 1,500 MG in SODIUM CHLORIDE 0.9% 250 ML IVPB SCH ×2 (13:08→23:22)
[2018-09-09] MEDS: HYDROmorphone 2 MG TAB PO PRN ×2 (03:36→07:01)
[2018-09-09] MEDS: cefTRIAXone 2,000 MG in SODIUM CHLORIDE 0.9% 100 ML IVPB SCH (08:19)
[2018-09-09] MEDS: PANTOPRAZOLE 40 MG TABLET PO SCH (08:19)
[2018-09-09] MEDS: LACTULOSE 20 GM/30 ML CUP PO SCH ×2 (08:19→21:32)
[2018-09-09] MEDS: CYANOCOBALAMIN-FA-PYRIDOXINE 1 EACH TAB PO SCH (08:19)
[2018-09-09] MEDS: PROCHLORPERAZINE 10 MG TAB PO PRN (08:54)
[2018-09-09] MEDS: HYDROmorphone 1 MG/ML 1 ML SYRINGE IVP PRN ×7 (09:45→23:44)
--- NOTE | 2018-09-09 11:50 | PN ---
PROGRESS NOTE He is having a lot more pain in the abdomen today, but no shortness of breath. No chest pain. Abdomen feels tight, did have multiple bowel movements, some nausea and decrease in appetite. He feels that the oral Dilaudid 2 mg is not working. REVIEW OF SYSTEMS: Eyes are fine. ENT: Mouth is dry. NECK: No problems swallowing. CHEST: No cough. No shortness of breath. HEART: No palpitations, chest pain. GI: Did have a bowel movement. He is having a little more distention here. No diarrhea. No constipation. Lactulose is working fine. No hematochezia. No melena. : No problems urinating. LOWER EXTREMITIES: Has a fair amount of cachexia. Negative Layne. Good hand strength. Good palpable pulses. Integumentary is normal. ALLERGIES: Normal. MEDICATIONS: At this time are unchanged. LAB WORK: Was not done. PHYSICAL EXAMINATION: Vital signs are all stable. EYES: Pupils are equal, round, react to light and accommodation. ENT showed tympanic membranes and pharynx to be negative. NECK: Supple. Midline trachea. Chest essentially clear to auscultation. Heart is sinus rhythm. Abdomen is distended, but I do hear bowel sounds. No palpable organomegaly. The palpable liver metastatic disease is palpable and has been for many months. Lower extremities: Negative Layne. Good palpable pulses. Negative rashes on the skin. PSYCHIATRIC: He is still very positive. No depression and occasional anxiety. ASSESSMENT: Cancer of the neck, squamous cell, with metastatic disease to the liver, elevated liver function tests. Metastatic disease, nicotine dependence, and acute peritonitis, questionably bacteria, still waiting the results of the cultures. At this period of time they are negative. History nicotine dependence, history of previous alcohol dependence which has not been there and stopped several years ago. PLAN: Is to continue his present medications. Fentanyl patch increased to 75, increase Dilaudid to 4 mg by mouth q.2, IV antibiotics accordingly. By tomorrow we should have the results and know what direction to go in as far as IV antibiotics. The prognosis has worsened since yesterday and in general is poor. MMODL / IJN: [id number] /
[2018-09-09 11:59] LABS: Basophils # (A) 0.1 k/uL (0-0.2); Basophils % (A) 0 %; Eosinophils # (A) 0.1 k/uL (0-0.7); Eosinophils % (A) 1 %; HCT 36.9 % (39.0-53.0); HGB 11.5 gm/dL (13.0-17.5); Hypochromasia Slight; Lymphocytes % (A) 6 %; MCH 28.3 pg (25.0-35.0); MCHC 31.3 g/dL (31.0-37.0); MCV 90.6 fL (80.0-100.0); Mean Platelet Volume 6.5; Monocytes # (A) 1.5 k/uL (0-1.0); Monocytes % (A) 10 %; Neutrophils # (A) 12.4 k/uL (1.3-7.7); Neutrophils % (A) 81 %; Platelet Count 371 k/uL (150-450); RBC 4.07 m/uL (4.30-5.90); RDW 15.5 % (11.5-15.5); WBC 15.4 k/uL (3.8-10.6)
[2018-09-09] MEDS: VANCOMYCIN 1,500 MG in SODIUM CHLORIDE 0.9% 250 ML IVPB SCH (12:00)
[2018-09-09] MEDS: VANCOMYCIN 1,750 MG in SODIUM CHLORIDE 0.9% 500 ML 500 ML IVPB SCH (23:45)
[2018-09-10] MEDS: HYDROmorphone 1 MG/ML 1 ML SYRINGE IVP PRN ×2 (03:17→06:15)
[2018-09-10 07:55] LABS: Anion Gap 5 mmol/L; Blood Urea Nitrogen 15 mg/dL (9-20); Calcium 7.7 mg/dL (8.4-10.2); Carbon Dioxide 28 mmol/L (22-30); Chloride 100 mmol/L (98-107); Glucose 98 mg/dL (74-99); Potassium 4.8 mmol/L (3.5-5.1); Sodium 133 mmol/L (137-145)
[2018-09-10] MEDS: LACTULOSE 20 GM/30 ML CUP PO SCH (08:25)
[2018-09-10] MEDS: CYANOCOBALAMIN-FA-PYRIDOXINE 1 EACH TAB PO SCH (08:25)
[2018-09-10] MEDS: PANTOPRAZOLE 40 MG TABLET PO SCH (08:26)
[2018-09-10] MEDS: cefTRIAXone 2,000 MG in SODIUM CHLORIDE 0.9% 100 ML IVPB SCH (08:26)
[2018-09-10] MEDS: HYDROmorphone 2 MG TAB PO PRN ×3 (08:26→13:38)
--- NOTE | 2018-09-10 10:48 | P.DS ---
Providers Date of admission: 09/05/18 17:11 Expected date of discharge: 09/10/18 Attending physician: Yusuf Delacruz Consults: 09/05/18 17:08 Consult Physician Urgent Consulting Provider: Earl Dave Consult Reason/Comments: Peritonitis Do you want consulting provider notified?: Yes Consult Physician Urgent Consulting Provider: [facility] Consult Reason/Comments: Paracentesis Do you want consulting provider notified?: Yes 09/06/18 08:17 Consult Physician Routine Consulting Provider: Jeffery Espinoza Consult Reason/Comments: metastatic cancer, pt known to you Do you want consulting provider notified?: Yes Primary care physician: Yusufchristopher Delacruz [facility] Course: 47-year-old male who presented to the emergency room with a chief complaint of abdominal pain. The patient has a history of squamous cell carcinoma with metastasis to the liver. The patient states he has had 2 different types of chemotherapy, neither of which were successful. He reports he has been following up at [facility] for a possible clinical trial, but was recently re-evaluated and was told his disease had progressed too far to be a candiate for the trial. He states his oncology team has recommended hospice. He had a paracentesis performed downtown with removal of 6.6 L. He reports being seen on Monday by his oncologist because of his elevated calcium levels. He began having abdominal pain which has worsened in severity over the last 24 hours. He is prescribed Percocet outpatient and states it is not helping the pain at all. He presented to the emergency room for further evaluation. Patient does report some associated shortness of breath. Denies chest pain or pressure. Denies nausea or vomiting. Denies diarrhea. Patient does have chronic constipation and takes stool softeners daily. Denies fever or chills. Denies lightheadedness or dizziness. KUB x-ray was completed revealing overall nonobstructive bowel gas pattern. CT angios the chest was performed due to elevated d-dimer. CT was negative for pulmonary embolism. It did reveal significant interval progression of hepatic lesions. Small bilateral pleural effusions. Basilar linear atelectasis. CT of the abdomen and pelvis was performed revealing new moderate to severe abdominal and pelvic ascites. Worsening hepatic metastatic disease. Worsening splenomegaly. Laboratory data on admission reveals white count 17.5. Hemoglobin 12.1. Platelet count 487. D -dimer 2.09. Sodium 131. Potassium 5.2. BUN 27. Creatinine 0.84. Glucose 116. Lactic acid 1.9. AST 212. ALT 94. Alkaline phosphatase 1439. Troponin negative 1. Amylase 50. Lipase 139. Urinalysis reveals turbid light brown urine, 1+ proteinuria, 1+ bilirubin, WBC 40. Negative for leukocyte esterase or nitrites. Patient underwent paracentesis on 09/06/2018 with removal of 4.1L. Ascites fluid culture has been negative. Blood cultures are negative at 96 hours. Urine culture negative. Patient reports his percocet is not controlling his pain. He is prescribed a fentanyl patch, which has been increased to 75mcg. He was also started on oral Dilaudid and currently prescribed Dilaudid 4mg Q2 hours. Prescriptions were given to the patient's time of discharge for a three-day supply. Opioid start talking form was discussed with patient. Patient signed form. Form was placed in patients chart. Dr. Dave recommends Cipro 500mg daily prophylactically at the time of discharge. He is stable for discharge home today. He is to follow up with Dr. Delacruz on . He also needs to follow up with oncology outpatient for possible outpatient paracentesis as needed. He will be discharged home with palliative care services. DISCHARGE DIAGNOSIS: Possible acute peritonitis, status post paracentesis with removal of 4.1 L, cultures negative Leukocytosis, WBC 17.5 on admission secondary to possible peritonitis Squamous cell carcinoma of the tongue with metastasis to liver Ascites, secondary to metastatic disease, status post paracentesis 09/03/2018 with removal of 6.6 L and second paracentesis with removal of 4.1L Elevated liver enzymes, secondary to metastatic disease Mild coagulopathy, INR 1.8, secondary to metastatic disease History of PEG tube with subsequent removal History of nicotine dependence, in remission, patient quit smoking 2014 Former heavy ETOH use Hypercalcemia Nurse practitioner note has been reviewed by physician. Signing provider agrees with the documented findings, assessment, and plan of care. Patient Condition at Discharge: Fair Plan - Discharge Summary Discharge Rx Participant: No New Discharge Prescriptions: New Ciprofloxacin HCl [Cipro] 500 mg PO DAILY #30 tablet fentaNYL 75MCG/HR PATCH [Duragesic 75MCG/HR] 1 patch TRANSDERM Q72H #1 patch HYDROmorphone [Dilaudid] 4 mg PO Q2HR PRN #72 tab PRN Reason: Pain Continue Omeprazole 40 mg PO DAILY ALPRAZolam [Xanax] 0.25 mg PO Q8H PRN PRN Reason: Anxiety Prochlorperazine [Compazine] 10 mg PO Q8H PRN PRN Reason: Nausea Vitamin B Complex 1 cap PO DAILY Lactulose [Cephulac] 20 gm PO BID Discontinued oxyCODONE-APAP 10-325MG [Percocet 10-325 mg] 1 tab PO Q4H PRN PRN Reason: Pain fentaNYL [Duragesic 50MCG/HR] 1 patch TRANSDERM Q72H Discharge Medication List Omeprazole 40 mg PO DAILY 10/02/17 [History] ALPRAZolam [Xanax] 0.25 mg PO Q8H PRN 10/25/17 [History] Prochlorperazine [Compazine] 10 mg PO Q8H PRN 09/05/18 [History] Vitamin B Complex 1 cap PO DAILY 09/05/18 [History] Lactulose [Cephulac] 20 gm PO BID 09/06/18 [History] Ciprofloxacin HCl [Cipro] 500 mg PO DAILY #30 tablet 09/10/18 [Rx] HYDROmorphone [Dilaudid] 4 mg PO Q2HR PRN #72 tab 09/10/18 [Rx] fentaNYL 75MCG/HR PATCH [Duragesic 75MCG/HR] 1 patch TRANSDERM Q72H #1 patch 10/16 [Rx] Follow up Appointment(s)/Referral(s): Yusuf Delacruz MD [Primary Care Provider] - 09/13/18 2:00 pm (please schedule patient appt on with Dr. delacruz) Jeffery Espinoza MD [Family Provider] - 09/18/18 4:15 pm Patient Instructions/Handouts: Ciprofloxacin (By mouth), Fentanyl (Absorbed through the skin), Hydromorphone (By mouth), Ascites (DC), Peritonitis (DC) Activity/Diet/Wound Care/Special Instructions: Home with palliative care Discharge Disposition: HOME WITH HOME HEALTH SERVICES
[2018-09-10] MEDS: PROCHLORPERAZINE 10 MG TAB PO PRN (11:07)
[2018-09-10 12:38] VITALS: BP 119/76; PULSE 84; RESP 16; TEMP 98.3
[2018-09-10] MEDS: VANCOMYCIN 1,750 MG in SODIUM CHLORIDE 0.9% 500 ML 500 ML IVPB SCH (13:48)
[2018-09-11] MEDS ORDERED: VANCOMYCIN TROUGH DUE 1 EACH MISC MISCELLANE ONE (11:00)
== END 2018-09-10 14:15 | disposition home health service (06) | DRG 372 ==
LOC: EC 11:07 → 3NMEDONC 17:11
PROVIDERS: ADMIT Family Medicine; ATTEND Family Medicine
PROC: 0W9G3ZX Drainage of Peritoneal Cavity, Percutaneous Approach, Diagnostic (ICD-10-PCS; principal; 2018-09-06)
DX: K65.0 Generalized (acute) peritonitis (principal); C78.7 Secondary malignant neoplasm of liver and intrahepatic bile duct; C77.0 Secondary and unspecified malignant neoplasm of lymph nodes of head, face and neck; D68.9 Coagulation defect, unspecified; J98.11 Atelectasis; R18.8 Other ascites; Z51.5 Encounter for palliative care; Z66 Do not resuscitate; C01 Malignant neoplasm of base of tongue; Z87.891 Personal history of nicotine dependence; E83.52 Hypercalcemia; K21.9 Gastro-esophageal reflux disease without esophagitis; K59.09 Other constipation; Z79.899 Other long term (current) drug therapy; Z82.49 Family history of ischemic heart disease and other diseases of the circulatory system; Z92.3 Personal history of irradiation; Z92.21 Personal history of antineoplastic chemotherapy; G89.3 Neoplasm related pain (acute) (chronic); Z68.22 Body mass index [BMI] 22.0-22.9, adult; F50.89 Other specified eating disorder; Z79.891 Long term (current) use of opiate analgesic; R13.10 Dysphagia, unspecified; R16.1 Splenomegaly, not elsewhere classified; F10.11 Alcohol abuse, in remission; F41.9 Anxiety disorder, unspecified
CPT/HCPCS: 36415; 49083; 71275; 74018; 74177; 80048; 80053; 80202; 81001; 82150; 83605; 83690; 84484; 85025; 85379; 85610; 85730; 87040; 87070; 87075; 87086; 87205; 93005; 96365; 96375; 96376; 99291

== ENCOUNTER 2018-09-28 09:50 | Day surgery (SDC) | payer BC ==
[2018-09-28 10:43] LABS: Mean Platelet Volume 6.8; Platelet Count 544 k/uL (150-450)
[2018-09-28 10:47] VITALS: RESP 16; TEMP 97.7
[2018-09-28 10:52] LABS: INR 1.3 (<1.2); Prothrombin Time 11.9 sec (9.0-12.0)
[2018-09-28 12:44] VITALS: BP 129/81; PULSE 72
--- NOTE | 2018-09-28 13:26 | US ---
Therapeutic paracentesis. DATE OF EXAM: 09/28/2018 CLINICAL HISTORY: Ascites The procedure was discussed with the patient. The risks, complications, benefits, and alternatives we re discussed and any questions were answered. Informed consent was obtained. The patient was placed s upine on the ultrasound table and prepped and draped in the usual sterile fashion. All elements of maximal barrier technique were utilized. Under ultrasound guidance, access into the right lower quadrant was obtained, via the paracentesis catheter system and direct ultrasound guidanc e. Approximately 11.2 liters of straw-colored fluid was removed. The patient was stable throughout the p rocedure and remained stable upon discharge from Department of Radiology. IMPRESSION: Successful therapeutic paracentesis under ultrasound guidance.
== END 2018-09-28 12:35 | disposition home or self-care (01) ==
LOC: RADPROMAIN 09:50
PROVIDERS: ATTEND Surgery
DX: R18.8 Other ascites (principal)
CPT/HCPCS: 85049; 85610; 49083; J1642

== ENCOUNTER 2018-10-04 09:55 | Day surgery (SDC) | payer BC ==
[2018-10-03 14:13] VITALS: BMI 20.3
[~2018-10-04 09:55] MED LIST changes: +LACTATED RINGERS 1,000 ML IV SCH; +MORPHINE SULFATE 2 MG/ML SYRINGE IV PRN; +ONDANSETRON 4 MG/2 ML VIAL IVP PRN; +ceFAZolin IN SWFI 2 GM/20 ML SYRINGE IVP ONE
[2018-10-04 10:22] VITALS: BP 114/72; PULSE 90; RESP 16; TEMP 98.1
[2018-10-04 11:04] LABS: INR 1.2 (<1.2); Prothrombin Time 12.8 sec (9.0-12.0)
--- NOTE | 2018-10-04 12:57 | P.HPADDEND ---
H&P Addendum H&P Addendum Date: 10/04/18 Patient came in today for elective peritoneal catheter placement. Potassium level was rechecked as it was elevated last week. Potassium today is 6.8. Anesthesia has discussed with the patient and his family that any form of anesthesia at this point is contraindicated. The patient is currently hospice. He is not interested in admission for treatment of hyperkalemia realizing there is a significant risk of potential cardiac complications including . We'll tentatively schedule for therapeutic paracentesis next week. No further plans to reschedule tunneled peritoneal catheter placement at this time.
== END 2018-10-04 13:10 | disposition home or self-care (01) ==
LOC: OR 09:55
PROVIDERS: ATTEND Surgery
DX: R18.0 Malignant ascites (principal); C02.9 Malignant neoplasm of tongue, unspecified; Z79.891 Long term (current) use of opiate analgesic; Z79.899 Other long term (current) drug therapy; Z87.891 Personal history of nicotine dependence; E87.5 Hyperkalemia; Z53.8 Procedure and treatment not carried out for other reasons
CPT/HCPCS: 84132; 85610